=== PATIENT | male | born 1935 | race Caucasian/White ===

== ENCOUNTER 2017-04-05 11:01 | Emergency (ER) | payer MEDICARE, BC ==
[~2017-04-05] VITALS: Ht 195.6 cm; Wt 100.0 kg
[~2017-04-05 11:01] MED LIST: ALL220TA PO; CRES10TA PO; LEVEMIR SQ; METO25 PO; NOVOLOGP2 SQ; PLAV75TA PO; POLY255S PO; PRED5TAB PO; PROT40TA PO; ST J81CH PO; TAMS0.4C67 PO; [UNRECOGNIZED DRUG - CODE] INJ
[2017-04-05 11:03] VITALS: BP 134/60; PULSE 87; RESP 17; TEMP 97.5; O2SAT 99
--- NOTE | 2017-04-05 11:12 | PD ---
Physical Exam Time Seen by Provider: 11:07 Narrative 81yo M presents c/o bilateral hip pain for the past few days. Denies recent fall or injury. Reports chill, decreased appetite and fluid intake. Vital signs reviewed. Patient seen in triage. Awaiting bed placement. Data Data Last Documented VS Vital Signs Date Time Temp Pulse Resp B/P Pulse Ox O2 Delivery O2 Flow Rate FiO2 04/05/17 11:03 97.5 87 17 134/60 99 MDM Supervised Visit with ARMINDA: Jamilah Burch April 05, 2017 11:12
[2017-04-05] MEDS ORDERED: SODIUM CHLORIDE 0.9% FLUSH 10 ML FLUSH IVF PRN (11:30)
[2017-04-05] MEDS ORDERED: SODIUM CHLOR 0.9% 1000 ML INJ 1,000 ML IV ONE (11:30)
[2017-04-05] MEDS ORDERED: ONDANSETRON HCL 4 MG/2 ML VIAL IV PUSH ONE (11:30)
--- NOTE | 2017-04-05 11:51 | PD ---
HPI Chief Complaint: Pain: Acute or Chronic Time Seen by Provider: 11:35 Travel History International Travel<30 days: No Contact w/Intl Traveler<30days: No Traveled to known affect area: No History of Present Illness HPI Patient is an 81-year-old male presenting to the emergency department for evaluation of possible UTI, bilateral hip pain, decreased oral intake, lightheadedness, nausea, abdominal pain. Patient was discharged from [facility] 2 weeks ago diagnosed with a urinary tract infection, he also presented initially with chest pain and subsequently underwent a cardiac catheter with stent placement by Dr. Quiroga. Patient was receiving normal saline infusions at home until this past Wednesday. After that states that the symptoms started. She reports that he does not drink or eat enough, she reports that he has gastroparesis and this could be contributing to his symptoms. Patient reports dark urine, nausea. Patient is followed by Dr. 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 They report that they had a CT scan done recently that showed suspicious lesions on his pelvis. Patient has a history of diverticulitis with colon resection, he is currently complaining of left lower quadrant pain as well. He denies any fevers but has reported chills in night sweats. states that he does not do well with oral antibiotics secondary to nausea. Patient denies any chronic issues with hip pain, the pain that he is experiencing is new for him. PFSH Past Medical History Arthritis: Yes (back) Asthma: No Autoimmune Disease: No Blood Disorders: No Heart Rhythm Problems: No Cancer: Yes (PROSTATE [place] 2008 RADIATION [place] 2008, METS TO LUNG) Cardiac Catheterization: Yes (2016) Cardiovascular Problems: Yes (STENT CARDIAC 2007,2016, [place] 2007,2009, HX OF A FIB/CARDIOVERSION 2013) High Cholesterol: Yes Chemotherapy: No Chest Pain: No Congestive Heart Failure: No COPD: No Cerebrovascular Accident: No Coronary Artery Disease: Yes Diabetes: Yes (TYPE II on Levemir) Diminished Hearing: No Gastrointestinal Disorders: Yes (DIVERTICULITIS, gastroparesis) GERD: Yes Glaucoma: No Genitourinary: Yes (PROSTATE CA 2008 RADIATION [place]) Hepatitis: No Hiatal Hernia: No Hypertension: Yes Immune Disorder: No Inguinal Hernia: Yes Implanted Vascular Access Dvce: Yes Kidney Stones: Yes Neurologic: No Psychiatric: No Reproductive: No Respiratory: Yes (HX OF R LUNG CA NODULES/RADIATION pneumonitis) Migraines: No Myocardial Infarction: Yes Radiation Therapy: Yes (FINISHED RADIATION AND HORMONE THERAPY FOR PROSTATE CA) Renal Failure: No Seizures: No Sickle Cell Disease: No Sleep Apnea: No Thyroid Disease: No Ulcer: No PNEUMOCCOCAL Vaccine (Year): 2 Past Surgical History AICD: No Arteriovenous Shunt: No Body Medical Devices: CARDIAC STENT, DENTAL IMPLANTS, GOLD SEEDS FOR PROSTATE CA Cardiac Surgery: Yes (STENT, HX OF A FIB/CARDIOVERSION 2013) Coronary Artery Bypass Graft: No Coronary Stent: Yes Ear Surgery: No Endocrine Surgery: No Eye Surgery: No Genitourinary Surgery: No Insulin Pump: No Joint Replacement: No Neurologic Surgery: No Pacemaker: No Thoracic Surgery: Yes (NEEDLE BIOPSY OF R LUNG, RADIATION TREATMENT R LUNG) Tonsillectomy: Yes Social History Alcohol Use: No Tobacco Use: No Substance Use: No Allergies-Medications (Allergen,Severity, Reaction): Coded Allergies: Tetanus Toxoid (Verified Allergy, Severe, RESPIRATORY (TO OLD FORM OF TETNUS - NOT WHAT IS USED NOW, 10/04/14) Contrast Media (Verified Allergy, Intermediate, Nausea/Vomiting, 10/04/14) DIZZINESS, SWELLING Reported Meds & Prescriptions Reported Meds & Active Scripts Active Reported Mobic (Meloxicam) 15 Mg Tab 15 Mg PO DAILY Lisinopril 40 Mg Tab 40 Mg PO BID Colace (Docusate Sodium) 100 Mg Cap 100 Mg PO BID Xarelto (Rivaroxaban) 20 Mg Tab 20 Mg PO HS Lorazepam 0.5 Mg Tab 0.5 Mg PO BID PRN Linzess (Linaclotide) 290 Mcg Cap 290 Mcg PO DAILY Dulera 120 Act Inh (Mometasone-Formoterol 120 Act Inh) 100-5 Mcg/Act Inh 2 Puff INH BID PRN Flonase Nasal [place] (Fluticasone Nasal [place]) 50 Mcg/Act [place] 2 Spr EACH NARE BID PRN [place] (Hydrocodone-Acetaminophen) 5-325 mg Tab 1 Tab PO Q6H PRN Review of Systems Except as stated in HPI: all other systems reviewed are Neg General / Constitutional: Positive: Chills, Other (sweats) HENT: Positive: Lightheadedness Cardiovascular: No: Chest Pain or Discomfort Respiratory: Positive: Shortness of Breath (chronic with exertion secondary to pneumonitis) Gastrointestinal: Positive: Nausea, Abdominal Pain, Loss of Appetite, No: Vomiting, Diarrhea Genitourinary: Positive: Dysuria Musculoskeletal: Positive: Myalgias, Arthralgias Neurologic: Positive: Weakness, Dizziness, No: Syncope, Focal Abnormalities, Change in Mentation Physical Exam Narrative GENERAL: Well-developed, well-nourished, alert elderly male. Resting comfortably in no acute distress. SKIN: Focused skin assessment warm/dry. HEAD: Atraumatic. Normocephalic. EYES: Pupils equal and round. No scleral icterus. No injection or drainage. ENT: No nasal bleeding or discharge. Mucous membranes pink and moist. NECK: Trachea midline. No JVD. CARDIOVASCULAR: Regular rate and rhythm. No murmur appreciated. RESPIRATORY: No accessory muscle use. Diminished in bases, no wheezing, rhonchi , rales noted. GASTROINTESTINAL: Abdomen soft, tender to palpation left lower quadrant, nondistended. Hepatic and splenic margins not palpable. Positive bowel sounds, no rebound, no guarding MUSCULOSKELETAL: No obvious deformities. No clubbing. No cyanosis. No edema. NEUROLOGICAL: Awake and alert. No obvious cranial nerve deficits. Motor grossly within normal limits. Normal speech. PSYCHIATRIC: Appropriate mood and affect; insight and judgment normal. Data Data Last Documented VS Vital Signs Date Time Temp Pulse Resp B/P Pulse Ox O2 Delivery O2 Flow Rate FiO2 04/05/17 13:13 61 18 155/71 98 Room Air 04/05/17 11:03 97.5 Orders Complete Blood Count With Diff (04/05/17 11:30) Comprehensive Metabolic Panel (04/05/17 11:30) Act Partial Throm Time (Ptt) (04/05/17 11:30) Prothrombin Time / Inr (Pt) (04/05/17 11:30) Magnesium (Mg) (04/05/17 11:30) Urinalysis - C+S If Indicated (04/05/17 11:30) Iv Access Insert/Monitor (04/05/17 11:30) Electrocardiogram (04/05/17 11:30) Ecg Monitoring (04/05/17 11:30) Oximetry (04/05/17 11:30) Oxygen Administration (04/05/17 11:30) Chest, Single Ap (04/05/17 11:30) Cath For Specimen (04/05/17 11:30) Sodium Chloride 0.9% Flush (Ns Flush) (04/05/17 11:30) Ct Abd/Pel W/O Iv Contrast (04/05/17 ) Sodium Chlor 0.9% 1000 Ml Inj (Ns 1000 M (04/05/17 11:30) Ondansetron Inj (Zofran Inj) (04/05/17 11:30) Morphine Inj (Morphine Inj) (04/05/17 12:15) Orthostatic Vital Signs (04/05/17 13:27) Morphine Inj (Morphine Inj) (04/05/17 14:00) Mri Pelvis W&W/O Contrast (04/05/17 ) Lorazepam Inj (Ativan Inj) (04/05/17 15:00) Gadodiamide Pf Inj (Omniscan Pf Inj) (04/05/17 15:26) Labs Laboratory Tests Test 04/05/17 12:20 White Blood Count 5.1 TH/MM3 Red Blood Count 3.93 MIL/MM3 Hemoglobin 10.8 GM/DL Hematocrit 32.2 % Mean Corpuscular Volume 81.8 FL Mean Corpuscular Hemoglobin 27.6 PG Mean Corpuscular Hemoglobin 33.7 % Concent Red Cell Distribution Width 15.2 % Platelet Count 151 TH/MM3 Mean Platelet Volume 9.2 FL Neutrophils (%) (Auto) 73.2 % Lymphocytes (%) (Auto) 14.9 % Monocytes (%) (Auto) 9.8 % Eosinophils (%) (Auto) 1.3 % Basophils (%) (Auto) 0.8 % Neutrophils # (Auto) 3.8 TH/MM3 Lymphocytes # (Auto) 0.8 TH/MM3 Monocytes # (Auto) 0.5 TH/MM3 Eosinophils # (Auto) 0.1 TH/MM3 Basophils # (Auto) 0.0 TH/MM3 CBC Comment DIFF FINAL Differential Comment Prothrombin Time 12.4 SEC Prothromb Time International 1.1 RATIO Ratio Activated Partial 29.8 SEC Thromboplast Time Urine Color YELLOW Urine Turbidity CLEAR Urine pH 7.5 Urine Specific [place] 1.006 Urine Protein NEG mg/dL Urine Glucose (UA) NEG mg/dL Urine Ketones NEG mg/dL Urine Occult Blood MOD Urine Nitrite NEG Urine Bilirubin NEG Urine Urobilinogen LESS THAN 2.0 MG/DL Urine Leukocyte Esterase NEG Urine RBC 2 /hpf Urine WBC LESS THAN 1 /hpf Microscopic Urinalysis Comment CULT NOT INDICATED Sodium Level 137 MEQ/L Potassium Level 4.4 MEQ/L Chloride Level 103 MEQ/L Carbon Dioxide Level 26.0 MEQ/L Anion Gap 8 MEQ/L Blood Urea Nitrogen 11 MG/DL Creatinine 1.16 MG/DL Estimat Glomerular Filtration 61 ML/MIN Rate Random Glucose 146 MG/DL Calcium Level 9.1 MG/DL Magnesium Level 1.5 MG/DL Total Bilirubin 0.8 MG/DL Aspartate Amino Transf 27 U/L (AST/SGOT) Alanine Aminotransferase 16 U/L (ALT/SGPT) Alkaline Phosphatase 67 U/L Total Protein 6.8 GM/DL Albumin 2.7 GM/DL MDM Medical Decision Making Medical Screen Exam Complete: Yes Emergency Medical Condition: Yes Medical Record Reviewed: Yes Interpretation(s) Laboratory Tests Test 04/05/17 12:20 White Blood Count 5.1 TH/MM3 Red Blood Count 3.93 MIL/MM3 Hemoglobin 10.8 GM/DL Hematocrit 32.2 % Mean Corpuscular Volume 81.8 FL Mean Corpuscular Hemoglobin 27.6 PG Mean Corpuscular Hemoglobin 33.7 % Concent Red Cell Distribution Width 15.2 % Platelet Count 151 TH/MM3 Mean Platelet Volume 9.2 FL Neutrophils (%) (Auto) 73.2 % Lymphocytes (%) (Auto) 14.9 % Monocytes (%) (Auto) 9.8 % Eosinophils (%) (Auto) 1.3 % Basophils (%) (Auto) 0.8 % Neutrophils # (Auto) 3.8 TH/MM3 Lymphocytes # (Auto) 0.8 TH/MM3 Monocytes # (Auto) 0.5 TH/MM3 Eosinophils # (Auto) 0.1 TH/MM3 Basophils # (Auto) 0.0 TH/MM3 CBC Comment DIFF FINAL Differential Comment Prothrombin Time 12.4 SEC Prothromb Time International 1.1 RATIO Ratio Activated Partial 29.8 SEC Thromboplast Time Urine Color YELLOW Urine Turbidity CLEAR Urine pH 7.5 Urine Specific [place] 1.006 Urine Protein NEG mg/dL Urine Glucose (UA) NEG mg/dL Urine Ketones NEG mg/dL Urine Occult Blood MOD Urine Nitrite NEG Urine Bilirubin NEG Urine Urobilinogen LESS THAN 2.0 MG/DL Urine Leukocyte Esterase NEG Urine RBC 2 /hpf Urine WBC LESS THAN 1 /hpf Microscopic Urinalysis Comment CULT NOT INDICATED Sodium Level 137 MEQ/L Potassium Level 4.4 MEQ/L Chloride Level 103 MEQ/L Carbon Dioxide Level 26.0 MEQ/L Anion Gap 8 MEQ/L Blood Urea Nitrogen 11 MG/DL Creatinine 1.16 MG/DL Estimat Glomerular Filtration 61 ML/MIN Rate Random Glucose 146 MG/DL Calcium Level 9.1 MG/DL Magnesium Level 1.5 MG/DL Total Bilirubin 0.8 MG/DL Aspartate Amino Transf 27 U/L (AST/SGOT) Alanine Aminotransferase 16 U/L (ALT/SGPT) Alkaline Phosphatase 67 U/L Total Protein 6.8 GM/DL Albumin 2.7 GM/DL Vital Signs Date Time Temp Pulse Resp B/P Pulse Ox O2 Delivery O2 Flow Rate FiO2 04/05/17 11:03 97.5 87 17 134/60 99 Differential Diagnosis Electrolyte abnormality secondary to dehydration versus urinary tract infection versus failure to thrive versus metastatic disease to the bone versus other Narrative Course Patient is an 81-year-old male brought in by 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 Labs and imaging ordered and pending, IV access established, patient placed on telemetry monitoring and continuous pulse oximetry. Patient has a copy of his recent PET scan performed on 03/30/2017 that shows hypermetabolism in the right posterior iliac wing suspicious for metastatic disease. There is also focal hyper metabolism and the pubic body with new bony erosion, hypermetabolism within masslike opacity in the right infrapatellar region and scattered bandlike opacity in the right lung, most likely reflective post radiation related change, there is mild hypermetabolism within a small patchy opacity in the right posterior medial right lower lobe agree focal area of atelectasis or inflammation. Correlation with prior outside imaging would be beneficial. Labs and imaging ordered and pending, IV access established, patient placed on telemetry monitoring and continuous pulse oximetry. Chest x-ray shows interval improvement with minimal parenchymal changes persisting in the right base. CT abdomen and pelvis is negative for acute abnormality, there is no evidence of metastatic disease per radiologist. There are degenerative changes noted in the lumbar spine and bilateral hips. CBC with a mild anemia of 10.8 and 32.2 otherwise unremarkable. Chemistries unremarkable, albumin is 2.7, patient was encouraged to increase protein intake. UA is not indicative of a urinary tract infection. Patient reports improvement how he feels after administration of morphine. Patient are reassured at this time that there were no acute findings. Patient is to follow-up with oncologist, and primary doctor. He is to return to emergency department for new or worsening symptoms. He was encouraged to increase fluid intake to help with constipation. He was encouraged to again increase intake of protein. Patient verbalized understanding of discharge instructions. Patient was also seen and evaluated by my attending physician. Patient will be given additional dose of morphine prior to discharge. He was advised that narcotic pain medications can exacerbate constipation. Stable for discharge. Just prior to discharge, patient's oncologist Dr. Herndon was notified by patient' s that he was being discharged, Dr. Henrdon then spoke to me. We discussed the results of CT scan, Dr. Herndon then called and talked to Dr. Bhargav Garcias the radiologist. The outcome of their discussion was to perform a pelvic MRI with and without contrast. The determination of the patient's disposition will depend on the results of MRI. Patient may end up receiving a CT-guided biopsy of the pubic ramus as that was initial abnormality on the PET scan. MRI of the pelvis shows one focus of apparent metastatic disease in the right ilium just above the right acetabulum. Marked abnormality about the pubic symphysis involving soft tissue with enhancement. Per the radiologist report inflammatory process could get a similar appearance will be unusual and is suspicious for metastatic disease. I spoke with Dr. Herndon, he requested patient follow-up in the office. Dr. Herndon states that he spoke with Dr. Garcias the radiologist and at this time they don't feel that this is requiring admission. Dr. Herndon states that he spoke with patient's and they are aware of the treatment plan and to follow-up in the office. Diagnosis Primary Impression: Arthritis Additional Impressions: Decreased appetite Decreased oral intake Referrals: Martin Robertson MD, Richard MD Patient Instructions: Arthritis (GEN), Constipation (ED), General Instructions Additional Instructions: Follow-up with Dr. Robertson and Dr. Herndon as scheduled Increase fluid intake, increase intake of protein Return to emergency department for any new or worsening symptoms Med/Other Pt SpecificInfo: No Change to Meds Disposition: 01 DISCHARGE HOME Condition: Stable Ashley Michael Reva PABLO April 05, 2017 11:51
--- NOTE | 2017-04-05 11:58 | RADRPT ---
EXAM DATE/TIME: 04/05/2017 11:31 [facility] COMPARISON: CHEST SINGLE AP, October 04, 2014, 13:23. INDICATIONS : Short of breath, vertigo, pain in left abdomen and hips, no chest pain at this time MEDICAL HISTORY : Cardiovascular disease. SURGICAL HISTORY : Coronary artery stent. ENCOUNTER: Initial ACUITY: 1 day PAIN SCORE: 0/10 LOCATION: Bilateral chest FINDINGS: Compared to 10/04/2014 minimal bibasilar parenchymal changes are noted worse on the right than the lef t. Heart is minimally enlarged. Pulmonary vascularity is normal. Portion of bony skeleton visualize d unremarkable. CONCLUSION: Interval improvement with minimal parenchymal changes persisting in the right base. Board Certified Radiologist. This report was verified electronically.
[2017-04-05] MEDS ORDERED: MORPHINE SULFATE 4 MG/ML INJ IV PUSH ONE ×2 (12:15→14:00)
[2017-04-05 12:45] LABS: AUTOMATED NEUTROPHIL # 3.8 TH/MM3 (1.8-7.7); BASOPHIL % 0.8 % (0.0-2.0); EOSINOPHIL # 0.1 TH/MM3 (0-0.4); EOSINOPHIL % 1.3 % (0.0-4.0); HEMATOCRIT 32.2 % (39.0-51.0); HEMO FLAGS DIFF FINAL; LYMPH % 14.9 % (9.0-44.0); LYMPHOCYTE # 0.8 TH/MM3 (1.0-4.8); MEAN CELL VOLUME 81.8 FL (80.0-100.0); MEAN CORPUSCULAR HEMOGLOBIN 27.6 PG (27.0-34.0); MEAN CORPUSCULAR HGB CONC 33.7 % (32.0-36.0); MONO % 9.8 % (0.0-8.0); NEUT % 73.2 % (16.0-70.0); PLATELET COUNT 151 TH/MM3 (150-450); RED BLOOD COUNT 3.93 MIL/MM3 (4.50-5.90); RED CELL DISTRIBUTION WIDTH 15.2 % (11.6-17.2); WHITE BLOOD COUNT 5.1 TH/MM3 (4.0-11.0)
[2017-04-05 12:50] LABS: BLOOD, URINE MOD (NEG); COMMENT (UR) CULT NOT INDICATED; CULTURE IF INDICATED CULT NOT INDICATED; GLUCOSE,URINE NEG (NEG); KETONE, URINE NEG (NEG); NITRITE,URINE NEG (NEG); PH, URINE 7.5 (5.0-8.5); URINE COLOR YELLOW (YELLW/STRAW)
[2017-04-05 12:55] LABS: PROTHROMBIN TIME - PATIENT 12.4 SEC (9.8-11.6)
[2017-04-05 12:58] LABS: ALKALINE PHOSPHATASE 67 U/L (45-117); TOTAL BILIRUBIN ADULT 0.8 MG/DL (0.2-1.0)
[2017-04-05 13:01] LABS: APTT (PATIENT) 29.8 SEC (24.3-30.1); INTERNATIONAL NORMALIZED RATIO 1.1 RATIO
[2017-04-05 13:02] LABS: ALT (GPT) 16 U/L (12-78); ANION GAP 8 MEQ/L (5-15); AST (GOT) 27 U/L (15-37); BLOOD UREA NITROGEN 11 MG/DL (7-18); CHLORIDE 103 MEQ/L (98-107); GLOMERULAR FILTRATION RATE 61 ML/MIN (>89); MAGNESIUM 1.5 MG/DL (1.5-2.5); SODIUM (NA) 137 MEQ/L (136-145)
[2017-04-05 13:04] LABS: POTASSIUM 4.4 MEQ/L (3.5-5.1)
[2017-04-05 13:13] VITALS: BP 155/71; PULSE 61; RESP 18; O2SAT 98
--- NOTE | 2017-04-05 13:22 | RADRPT ---
EXAM DATE/TIME: 04/05/2017 12:43 [facility] COMPARISON: CT ABDOMEN & PELVIS W/O CONTRAST, February 24, 2014, 1:11. INDICATIONS : Left lower abdomen and bilateral hip pain for two weeks. ORAL CONTRAST: No oral contrast ingested. RADIATION DOSE: 11.43 CTDIvol (mGy) MEDICAL HISTORY : Carcinoma, prostate. Hypertension. Diabetes SURGICAL HISTORY : Stent placement ENCOUNTER: Initial ACUITY: 2 weeks PAIN SCALE: 7/10 LOCATION: Left lower quadrant TECHNIQUE: Volumetric scanning of the abdomen and pelvis was performed. Using automated exposure control and ad justment of the mA and/or kV according to patient size, radiation dose was kept as low as reasonably achievable to obtain optimal diagnostic quality images. FINDINGS: Minimal airspace disease persists in the right base. The liver is free of focal defects. Gallstones are evident. Spleen contains granulomas. Pancreas and adrenal glands are unremarkable. Right and left kidneys are unremarkable. Moderate vascular calcifications are noted. Scattered diverticula are present in the sigmoid colon. Surgical clips are seen in the pelvis. There is no ascites or adenopathy appreciated. Review of bone windows reveals extensive degenerative changes in the lumbar spine. There are erosive changes at the pubic symphysis. I do not see evidence for metastatic disease in this individual with a history of prostate cancer. Degenerative changes are seen about both hips. CONCLUSION: Negative CT scan of the abdomen and pelvis for acute disease. I do not see evidence for metastatic d isease. There are degenerative changes present in the lumbar spine, pubic symphysis and both hips. Bhargav Garcias MD FACR on April 05, 2017 at 13:14 Board Certified Radiologist. This report was verified electronically.
[2017-04-05] MEDS ORDERED: LORazepam 2 MG/ML VIAL IV PUSH ONE (15:00)
[2017-04-05] MEDS ORDERED: GADODIAMIDE PF 287 MG/ML 5 ML VIAL (for RAD MRI) IV ONE (15:26)
--- NOTE | 2017-04-05 15:45 | PD ---
Physical Exam Narrative I, Dr. eBnjamin, have reviewed the advance practice practitioner's documentation and am in agreement, met with the patient face to face, made the diagnosis, and the medical decision making was done by me. *My assessment and Findings: Failure to thrive vs. UTI vs. dehydration 81yo M with metastatic prostate cancer who follows with Dr. Herndon here with decreased appetite and decreased PO intake. Pt also with abdominal pain. Labs reviewed, no leukocytosis. H/H at baseline. CMP unremarkable. UA showed moderate blood. No leukocyte or nitrite. CXR showed interval improvement with minimal parenchymal changes persistent in right base. CTa/p negative for acute disease. Pt evaluated at bedside and states morphine helped with abdominal pain. Still with mild periumbilical pain. Ordered 2 more mg of morphine IV. My PA discussed with Dr. Herndon and he was concern about metastatic disease in pelvis and wanted MRI done. Pt is claustrophobic and ativan was given for MRI. MRI showed metastatic disease in right ilium. This was communicated with Dr. Herndon and now he wants outpatient follow up. Return precautions given. Data Data Last Documented VS Vital Signs Date Time Temp Pulse Resp B/P Pulse Ox O2 Delivery O2 Flow Rate FiO2 04/05/17 17:37 64 16 145/74 98 Room Air 04/05/17 11:03 97.5 Orders Complete Blood Count With Diff (04/05/17 11:30) Comprehensive Metabolic Panel (04/05/17 11:30) Act Partial Throm Time (Ptt) (04/05/17 11:30) Prothrombin Time / Inr (Pt) (04/05/17 11:30) Magnesium (Mg) (04/05/17 11:30) Urinalysis - C+S If Indicated (04/05/17 11:30) Iv Access Insert/Monitor (04/05/17 11:30) Electrocardiogram (04/05/17 11:30) Ecg Monitoring (04/05/17 11:30) Oximetry (04/05/17 11:30) Oxygen Administration (04/05/17 11:30) Chest, Single Ap (04/05/17 11:30) Cath For Specimen (04/05/17 11:30) Sodium Chloride 0.9% Flush (Ns Flush) (04/05/17 11:30) Ct Abd/Pel W/O Iv Contrast (04/05/17 ) Sodium Chlor 0.9% 1000 Ml Inj (Ns 1000 M (04/05/17 11:30) Ondansetron Inj (Zofran Inj) (04/05/17 11:30) Morphine Inj (Morphine Inj) (04/05/17 12:15) Orthostatic Vital Signs (04/05/17 13:27) Morphine Inj (Morphine Inj) (04/05/17 14:00) Mri Pelvis W&W/O Contrast (04/05/17 ) Lorazepam Inj (Ativan Inj) (04/05/17 15:00) Gadodiamide Pf Inj (Omniscan Pf Inj) (04/05/17 15:26) Labs Laboratory Tests Test 04/05/17 12:20 White Blood Count 5.1 TH/MM3 Red Blood Count 3.93 MIL/MM3 Hemoglobin 10.8 GM/DL Hematocrit 32.2 % Mean Corpuscular Volume 81.8 FL Mean Corpuscular Hemoglobin 27.6 PG Mean Corpuscular Hemoglobin 33.7 % Concent Red Cell Distribution Width 15.2 % Platelet Count 151 TH/MM3 Mean Platelet Volume 9.2 FL Neutrophils (%) (Auto) 73.2 % Lymphocytes (%) (Auto) 14.9 % Monocytes (%) (Auto) 9.8 % Eosinophils (%) (Auto) 1.3 % Basophils (%) (Auto) 0.8 % Neutrophils # (Auto) 3.8 TH/MM3 Lymphocytes # (Auto) 0.8 TH/MM3 Monocytes # (Auto) 0.5 TH/MM3 Eosinophils # (Auto) 0.1 TH/MM3 Basophils # (Auto) 0.0 TH/MM3 CBC Comment DIFF FINAL Differential Comment Prothrombin Time 12.4 SEC Prothromb Time International 1.1 RATIO Ratio Activated Partial 29.8 SEC Thromboplast Time Urine Color YELLOW Urine Turbidity CLEAR Urine pH 7.5 Urine Specific [place] 1.006 Urine Protein NEG mg/dL Urine Glucose (UA) NEG mg/dL Urine Ketones NEG mg/dL Urine Occult Blood MOD Urine Nitrite NEG Urine Bilirubin NEG Urine Urobilinogen LESS THAN 2.0 MG/DL Urine Leukocyte Esterase NEG Urine RBC 2 /hpf Urine WBC LESS THAN 1 /hpf Microscopic Urinalysis Comment CULT NOT INDICATED Sodium Level 137 MEQ/L Potassium Level 4.4 MEQ/L Chloride Level 103 MEQ/L Carbon Dioxide Level 26.0 MEQ/L Anion Gap 8 MEQ/L Blood Urea Nitrogen 11 MG/DL Creatinine 1.16 MG/DL Estimat Glomerular Filtration 61 ML/MIN Rate Random Glucose 146 MG/DL Calcium Level 9.1 MG/DL Magnesium Level 1.5 MG/DL Total Bilirubin 0.8 MG/DL Aspartate Amino Transf 27 U/L (AST/SGOT) Alanine Aminotransferase 16 U/L (ALT/SGPT) Alkaline Phosphatase 67 U/L Total Protein 6.8 GM/DL Albumin 2.7 GM/DL [facility] Supervised Visit with ARMINDA: Yes Interpretation(s) EKG: Sinus bradycardia at 51bpm. Likely lead placement error since I and aVL are both down with inverted p waves. Diagnosis Primary Impression: Arthritis Additional Impressions: Decreased oral intake Decreased appetite Referrals: Martin Robertson MD, Richard MD Patient Instructions: General Instructions, Constipation (ED), Arthritis (GEN) Additional Instruction: Follow-up with Dr. Robertson and Dr. Herndon as scheduled Increase fluid intake, increase intake of protein Return to emergency department for any new or worsening symptoms Nuris Benjamin DO April 05, 2017 15:45
--- NOTE | 2017-04-05 16:15 | RADRPT ---
EXAM DATE/TIME: 04/05/2017 15:03 [facility] COMPARISON: CT ABDOMEN & PELVIS W/O CONTRAST, April 05, 2017, 12:43. INDICATIONS : Abnormal CT scan. Neoplasm. CONTRAST: 20 cc Omniscan (gadodiamide) IV MEDICAL HISTORY : Carcinoma, lung. Carcinoma, prostate. Hypertension. Diabetes. SURGICAL HISTORY : Umbilical hernia repair. Inguinal hernia repair. Colon resection. Melanoma fro m head, Tonsillectomy. ENCOUNTER: Initial ACUITY: 1 week PAIN SCORE: 3/10 LOCATION: Bilateral lower quadrant TECHNIQUE: Multiplanar, multisequence magnetic resonance imaging of the pelvis was performed. FINDINGS: There is subtle marrow replacement in the right ilium just above the acetabulum. There is edema in the marrow involving the pubic symphysis with soft tissue enhancement and induration. T his is an unusual location and appearance for metastatic disease. Inflammatory process could give a similar appearance but would be unusual. Post radiation therapy changes with insufficiency fractures could give a very similar appearance. Right and left hips are unremarkable. The bladder is decompressed with bladder wall thickening. CONCLUSION: 1. One focus of apparent metastatic disease in the right ilium just above the right acetabulum. 2. Marked abnormality about the pubic symphysis including soft tissue with enhancement. Please see a trino discussion. Bhargav Garcias MD FACR on April 05, 2017 at 15:58 Board Certified Radiologist. This report was verified electronically.
[2017-04-05] MEDS ORDERED: COLA100C3 PO (16:39)
[2017-04-05] MEDS ORDERED: LORA-373 PO (16:39)
[2017-04-05] MEDS ORDERED: XARE20TA PO (16:39)
[2017-04-05] MEDS ORDERED: LINA290C PO (16:39)
[2017-04-05] MEDS ORDERED: LISI40TA PO (16:39)
[2017-04-05] MEDS ORDERED: DULE100A INH (16:39)
[2017-04-05] MEDS ORDERED: FLUT1SPR5 EACH NARE (16:39)
[2017-04-05] MEDS ORDERED: MOBI15TA PO (16:39)
[2017-04-05] MEDS ORDERED: NORC5TAB PO (16:39)
[2017-04-05] MEDS ORDERED: ROSU40 PO (16:43)
[2017-04-05] MEDS ORDERED: METO25TA3 PO (16:43)
[2017-04-05] MEDS ORDERED: TAMS0.4C4 PO (16:43)
[2017-04-05] MEDS ORDERED: LUPR22.5 IM (16:43)
[2017-04-05] MEDS ORDERED: PANT40TA3 PO (16:43)
[2017-04-05] MEDS ORDERED: LEVEMIR SQ (16:43)
[2017-04-05] MEDS ORDERED: NOVOLOGP2 SQ (16:43)
[2017-04-05 17:37] VITALS: BP 145/74; PULSE 64; RESP 16; O2SAT 98
--- NOTE | 2017-04-06 15:37 | EKG ---
Date Performed: 04/05/2017 Time Performed: 13:06:41 PTAGE: 81 years EKG: SINUS BRADYCARDIA WITH OCCASIONAL ECTOPIC PREMATURE COMPLEXES POSSIBLE RIGHT VENTRICULAR HY PERTROPHY LATERAL MYOCARDIAL INFARCTION Compared to prior tracing no significant change ABNORMAL ECG NO PREVIOUS TRACING DOCTOR: Alexandra Ac Interpretating Date/Time 04/06/2017 15:35:07
[2017-05-26] MEDS ORDERED: PLEC3TAB PO (14:09)
== END 2017-04-05 17:53 | disposition home or self-care (01) ==
LOC: NEPC 11:01
DX: M19.90 Unspecified osteoarthritis, unspecified site (principal); M25.552 Pain in left hip; M25.551 Pain in right hip; C61 Malignant neoplasm of prostate; C78.00 Secondary malignant neoplasm of unspecified lung; E78.00 Pure hypercholesterolemia, unspecified; I25.10 Atherosclerotic heart disease of native coronary artery without angina pectoris; E11.9 Type 2 diabetes mellitus without complications; I10 Essential (primary) hypertension; I25.2 Old myocardial infarction; D64.9 Anemia, unspecified; R63.0 Anorexia; Z87.442 Personal history of urinary calculi
CPT/HCPCS: 71010; 72197; 74176; 80053; 81001; 83735; 85025; 85610; 85730; 93005; 96374; 96375; 99284; A9579; J2060; J2270; J2405; J7030

== ENCOUNTER 2017-05-14 15:59 | Inpatient (IN) | payer MEDICARE, BC ==
[~2017-05-14] VITALS: Ht 198.1 cm; Wt 95.5 kg
[~2017-05-14 15:59] MED LIST changes: -ALL220TA PO; +COLA100C3 PO; -CRES10TA PO; +DULE100A INH; +FLUT1SPR5 EACH NARE; +LINA290C PO; +LISI40TA PO; +LORA-373 PO; +LUPR22.5 IM; -METO25 PO; +METO25TA3 PO; +MOBI15TA PO; +NORC5TAB PO; +PANT40TA3 PO; -PLAV75TA PO; -POLY255S PO; -PRED5TAB PO; -PROT40TA PO; +ROSU40 PO; -ST J81CH PO; +TAMS0.4C4 PO; -TAMS0.4C67 PO; +XARE20TA PO; -[UNRECOGNIZED DRUG - CODE] INJ
[2017-05-14 16:02] VITALS: BP 151/75; PULSE 65; RESP 18; TEMP 98.2; O2SAT 98
--- NOTE | 2017-05-14 16:20 | PD ---
HPI Chief Complaint: Headache Time Seen by Provider: 16:20 Travel History International Travel<30 days: No Contact w/Intl Traveler<30days: No Traveled to known affect area: No History of Present Illness HPI 81-year-old male presents to the emergency department for evaluation at the instruction of his oncologist Dr. Herndon. 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 He underwent treatment for this in 2007. Patient recently had 2 spots of melanoma removed from his head. Patient also has history of CAD, hypertension, A. fib, on Xarelto and diabetes. Patient reports being hospitalized in January of this year after being septic from a UTI. This hospitalization was at [facility]. Patient states since the hospitalization he has not quite been right. He has been increasingly fatigued and unable to walk even short distance without extreme weakness. Patient had a trip and fall 2 days ago he did strike his head. He did not seek evaluation following this. He has developed a severe left-sided headache, sharp , stabbing, 10 out of 10. He states it is unbearable today. Denies any nausea or vomiting. No focal deficits or weakness. No chest pain or tightness. Dr. Herndon called and gave report to Dr. Coelho who reports that Dr. Herndon would like the patient admitted for further evaluation. The patient has severe claustrophobia and is in need of an MRI with and without contrast. He needs Benadryl pretreatment prior to CT with IV contrast. 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 Dr. Herndon does request to be consulted on the case. PFSH Past Medical History Hx Anticoagulant Therapy: Yes (XARELTO ) Arthritis: Yes (back) Asthma: No Autoimmune Disease: No Blood Disorders: No Heart Rhythm Problems: No Cancer: Yes (PROSTATE CA 2008 RADIATION [place] 2009, METS TO LUNG) Cardiac Catheterization: Yes (2017) Cardiovascular Problems: Yes (HTN ) High Cholesterol: Yes Chemotherapy: No Chest Pain: No Congestive Heart Failure: No COPD: No Cerebrovascular Accident: No Coronary Artery Disease: Yes Diabetes: Yes (TYPE II on Levemir) Diminished Hearing: No Gastrointestinal Disorders: Yes (DIVERTICULITIS, gastroparesis) GERD: Yes Glaucoma: No Genitourinary: Yes (PROSTATE CA 2008 RADIATION [place]) Hepatitis: No Hiatal Hernia: No Hypertension: Yes Immune Disorder: No Inguinal Hernia: Yes Implanted Vascular Access Dvce: Yes Kidney Stones: Yes Neurologic: No Psychiatric: No Reproductive: No Respiratory: Yes (HX OF R LUNG CA NODULES/RADIATION pneumonitis) Migraines: No Myocardial Infarction: Yes Radiation Therapy: Yes (FINISHED RADIATION AND HORMONE THERAPY FOR PROSTATE CA) Renal Failure: No Seizures: No Sickle Cell Disease: No Sleep Apnea: No Thyroid Disease: No Ulcer: No PNEUMOCCOCAL Vaccine (Year): 2 Past Surgical History AICD: No Arteriovenous Shunt: No Body Medical Devices: CARDIAC STENT, DENTAL IMPLANTS, GOLD SEEDS FOR PROSTATE CA Cardiac Surgery: Yes (STENT, HX OF A FIB/CARDIOVERSION 2013) Coronary Artery Bypass Graft: No Coronary Stent: Yes Ear Surgery: No Endocrine Surgery: No Eye Surgery: No Genitourinary Surgery: No Insulin Pump: No Joint Replacement: No Neurologic Surgery: No Pacemaker: No Thoracic Surgery: Yes (NEEDLE BIOPSY OF R LUNG, RADIATION TREATMENT R LUNG) Tonsillectomy: Yes Social History Alcohol Use: No Tobacco Use: No Substance Use: No Allergies-Medications (Allergen,Severity, Reaction): Coded Allergies: Tetanus Toxoid (Verified Allergy, Severe, RESPIRATORY (TO OLD FORM OF TETNUS - NOT WHAT IS USED NOW, 05/14/17) Contrast Media (Verified Allergy, Intermediate, Nausea/Vomiting, 05/14/17) DIZZINESS, SWELLING Reported Meds & Prescriptions Reported Meds & Active Scripts Active Reported Movantik (Naloxegol) 25 Mg Tab 25 Mg PO DAILY Ambien (Zolpidem Tartrate) 10 Mg Tab 10 Mg PO HS PRN Singulair (Montelukast Sodium) 10 Mg Tab 10 Mg PO HS Colace (Docusate Sodium) 100 Mg Capsule 100 Mg PO BID Hydrocodone-Acetaminophen 10-325 mg Tab 1-2 Tab PO Q6H PRN Crestor (Rosuvastatin Calcium) 40 Mg Tab 40 Mg PO HS Novolog Inj (Insulin Aspart) 1,000 Unit/10 Ml Vial 0 SQ BID Sliding Scale as directed. Levemir Inj (Insulin Detemir) 1,000 unit/ 10 ML Vial 10 Units SQ HS Do not mix with any other Insulin. Lupron Depot Inj Kit (Leuprolide (3 Month) Inj Kit) 22.5 Mg Kit 22.5 Mg IM Q84D Metoprolol Tartrate 25 Mg Tab 25 Mg PO BID Pantoprazole (Pantoprazole Sodium) 40 Mg Tab 40 Mg PO DAILY Tamsulosin (Tamsulosin HCl) 0.4 Mg Cap 0.4 Mg PO HS Lisinopril 40 Mg Tab 40 Mg PO BID Xarelto (Rivaroxaban) 20 Mg Tab 20 Mg PO HS Lorazepam 0.5 Mg Tab 0.5 Mg PO BID PRN Linzess (Linaclotide) 290 Mcg Cap 290 Mcg PO DAILY PRN Dulera 120 Act Inh (Mometasone-Formoterol 120 Act Inh) 100-5 Mcg/Act Inh 2 Puff INH BID PRN Flonase Nasal [place] (Fluticasone Nasal [place]) 50 Mcg/Act [place] 2 Spr EACH NARE BID PRN Review of Systems Except as stated in HPI: all other systems reviewed are Neg Physical Exam Narrative GENERAL: Well-nourished elderly male patient, in no acute distress SKIN: Focused skin assessment warm/dry. Abrasion to the left mid upper extremity. There is contusion to the left parietal scalp. HEAD: Atraumatic. Normocephalic. EYES: Pupils pinpoint right pupil. Left pupil is slightly larger with very slight reaction. EOMI. No scleral icterus. No injection or drainage. ENT: No nasal bleeding or discharge. Mucous membranes pink and moist. NECK: Trachea midline. No JVD. CARDIOVASCULAR: Bradycardic rate and rhythm. No murmur appreciated. RESPIRATORY: No accessory muscle use. Diminished, coarse, with a faint expiratory wheeze to auscultation. Breath sounds equal bilaterally. GASTROINTESTINAL: Abdomen soft, non-tender, nondistended. Hepatic and splenic margins not palpable. MUSCULOSKELETAL: No obvious deformities. No clubbing. No cyanosis. No edema. NEUROLOGICAL: Awake and alert. No obvious cranial nerve deficits. Motor grossly within normal limits. Normal speech. PSYCHIATRIC: Appropriate mood and affect; insight and judgment normal. Data Data Last Documented VS Vital Signs Date Time Temp Pulse Resp B/P Pulse Ox O2 Delivery O2 Flow Rate FiO2 05/14/17 16:46 100 Room Air 05/14/17 16:38 57 16 05/14/17 16:02 98.2 151/75 Orders Electrocardiogram (05/14/17 16:18) Complete Blood Count With Diff (05/14/17 16:18) Comprehensive Metabolic Panel (05/14/17 16:18) Prothrombin Time / Inr (Pt) (05/14/17 16:18) Act Partial Throm Time (Ptt) (05/14/17 16:18) Ckmb (Isoenzyme) Profile (05/14/17 16:18) Urinalysis - C+S If Indicated (05/14/17 16:18) Chest, Single Ap (05/14/17 16:18) Blood Glucose (05/14/17 16:18) Ecg Monitoring (05/14/17 16:18) Iv Access Insert/Monitor (05/14/17 16:18) Oximetry (05/14/17 16:18) Oxygen Administration (05/14/17 16:18) Ct Brain W/O Iv Contrast(Rout) (05/14/17 16:18) C-Reactive Protein (Crp) (05/14/17 16:18) Westergren Sedimentation Rate (05/14/17 16:18) Ondansetron Inj (Zofran Inj) (05/14/17 16:30) Morphine Inj (Morphine Inj) (05/14/17 16:30) Morphine Inj (Morphine Inj) (05/14/17 18:30) Admit Order (Ed Use Only) (05/14/17 19:13) Consult Hematology (05/14/17 ) Labs Laboratory Tests Test 05/14/17 05/14/17 16:45 17:35 White Blood Count 7.3 TH/MM3 Red Blood Count 4.36 MIL/MM3 Hemoglobin 11.8 GM/DL Hematocrit 36.2 % Mean Corpuscular Volume 83.1 FL Mean Corpuscular Hemoglobin 27.1 PG Mean Corpuscular Hemoglobin 32.6 % Concent Red Cell Distribution Width 16.8 % Platelet Count 144 TH/MM3 Mean Platelet Volume 9.6 FL Neutrophils (%) (Auto) 51.1 % Lymphocytes (%) (Auto) 32.5 % Monocytes (%) (Auto) 9.7 % Eosinophils (%) (Auto) 6.3 % Basophils (%) (Auto) 0.4 % Neutrophils # (Auto) 3.7 TH/MM3 Lymphocytes # (Auto) 2.4 TH/MM3 Monocytes # (Auto) 0.7 TH/MM3 Eosinophils # (Auto) 0.5 TH/MM3 Basophils # (Auto) 0.0 TH/MM3 CBC Comment DIFF FINAL Differential Comment Erythrocyte Sedimentation Rate 54 mm/hr Prothrombin Time 11.0 SEC Prothromb Time International 1.0 RATIO Ratio Activated Partial 28.7 SEC Thromboplast Time Sodium Level 138 MEQ/L Potassium Level 3.6 MEQ/L Chloride Level 104 MEQ/L Carbon Dioxide Level 27.0 MEQ/L Anion Gap 7 MEQ/L Blood Urea Nitrogen 15 MG/DL Creatinine 1.12 MG/DL Estimat Glomerular Filtration 63 ML/MIN Rate Random Glucose 141 MG/DL Calcium Level 9.3 MG/DL Total Bilirubin 0.4 MG/DL Aspartate Amino Transf 17 U/L (AST/SGOT) Alanine Aminotransferase 20 U/L (ALT/SGPT) Alkaline Phosphatase 68 U/L Total Creatine Kinase 21 U/L C-Reactive Protein 1.18 MG/DL Total Protein 7.1 GM/DL Albumin 3.1 GM/DL Urine Color LIGHT-YELLOW Urine Turbidity CLEAR Urine pH 8.0 Urine Specific [place] 1.006 Urine Protein NEG mg/dL Urine Glucose (UA) NEG mg/dL Urine Ketones NEG mg/dL Urine Occult Blood NEG Urine Nitrite NEG Urine Bilirubin NEG Urine Urobilinogen LESS THAN 2.0 MG/DL Urine Leukocyte Esterase NEG Urine WBC LESS THAN 1 /hpf Urine Squamous Epithelial <1 /hpf Cells Microscopic Urinalysis Comment CATH-CULT NOT IND MDM Medical Decision Making Medical Screen Exam Complete: Yes Emergency Medical Condition: Yes Medical Record Reviewed: Yes Differential Diagnosis Intracranial hemorrhage versus migraine headache versus metastatic disease versus electrolyte abnormality Narrative Course 81-year-old male presents to the emergency department for evaluation. Patient appears without distress. He reports severe 10 out of 10 left-sided headache. There are no focal deficits or weakness. Vital signs are stable. Patient does report a fall [address] imaging of the brain is without acute abnormality. Patient is treated with morphine for headache with moderate improvement in his pain. He is given additional pain control this.. Patient states he is severely claustrophobic and cannot do an MRI without complete sedation. Dr. Herndon called and gave report to Dr. Coelho and requested consult to his service. Laboratory Tests Test 05/14/17 05/14/17 16:45 17:35 White Blood Count 7.3 TH/MM3 Red Blood Count 4.36 MIL/MM3 Hemoglobin 11.8 GM/DL Hematocrit 36.2 % Mean Corpuscular Volume 83.1 FL Mean Corpuscular Hemoglobin 27.1 PG Mean Corpuscular Hemoglobin 32.6 % Concent Red Cell Distribution Width 16.8 % Platelet Count 144 TH/MM3 Mean Platelet Volume 9.6 FL Neutrophils (%) (Auto) 51.1 % Lymphocytes (%) (Auto) 32.5 % Monocytes (%) (Auto) 9.7 % Eosinophils (%) (Auto) 6.3 % Basophils (%) (Auto) 0.4 % Neutrophils # (Auto) 3.7 TH/MM3 Lymphocytes # (Auto) 2.4 TH/MM3 Monocytes # (Auto) 0.7 TH/MM3 Eosinophils # (Auto) 0.5 TH/MM3 Basophils # (Auto) 0.0 TH/MM3 CBC Comment DIFF FINAL Differential Comment Erythrocyte Sedimentation Rate 54 mm/hr Prothrombin Time 11.0 SEC Prothromb Time International 1.0 RATIO Ratio Activated Partial 28.7 SEC Thromboplast Time Sodium Level 138 MEQ/L Potassium Level 3.6 MEQ/L Chloride Level 104 MEQ/L Carbon Dioxide Level 27.0 MEQ/L Anion Gap 7 MEQ/L Blood Urea Nitrogen 15 MG/DL Creatinine 1.12 MG/DL Estimat Glomerular Filtration 63 ML/MIN Rate Random Glucose 141 MG/DL Calcium Level 9.3 MG/DL Total Bilirubin 0.4 MG/DL Aspartate Amino Transf 17 U/L (AST/SGOT) Alanine Aminotransferase 20 U/L (ALT/SGPT) Alkaline Phosphatase 68 U/L Total Creatine Kinase 21 U/L C-Reactive Protein 1.18 MG/DL Total Protein 7.1 GM/DL Albumin 3.1 GM/DL Urine Color LIGHT-YELLOW Urine Turbidity CLEAR Urine pH 8.0 Urine Specific [place] 1.006 Urine Protein NEG mg/dL Urine Glucose (UA) NEG mg/dL Urine Ketones NEG mg/dL Urine Occult Blood NEG Urine Nitrite NEG Urine Bilirubin NEG Urine Urobilinogen LESS THAN 2.0 MG/DL Urine Leukocyte Esterase NEG Urine WBC LESS THAN 1 /hpf Urine Squamous Epithelial <1 /hpf Cells Microscopic Urinalysis Comment CATH-CULT NOT IND I spoke with Dr. Lorenz who states pt does not go to service. A call is placed to . Dr. Manrique returns call and patient will be admitted observation to her service. Plan is discussed with the patient and his family. They are in agreement with this plan of care. 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
[2017-05-14] MEDS ORDERED: ONDANSETRON HCL 4 MG/2 ML VIAL IV PUSH ONE (16:30)
[2017-05-14] MEDS ORDERED: MORPHINE SULFATE 4 MG/ML INJ IV PUSH ONE ×2 (16:30→18:30)
[2017-05-14 16:46] VITALS: O2SAT 100
[2017-05-14 17:17] LABS: APTT (PATIENT) 28.7 SEC (24.3-30.1)
--- NOTE | 2017-05-14 17:21 | RADRPT ---
EXAM DATE/TIME: 05/14/2017 17:06 [facility] COMPARISON: CT BRAIN W/O CONTRAST, March 07, 2014, 21:08. CT ABDOMEN & PELVIS W/O CONTRAST, April 05, 2017, 12:43. INDICATIONS : Evaluate for migrane. RADIATION DOSE: 56.35 CTDIvol (mGy) MEDICAL HISTORY : Hypertension. Cardiovascular disease Carcinoma, prostate.Lung cancer. SURGICAL HISTORY : Coronary artery stent. ENCOUNTER: Initial ACUITY: 4 - 6 months PAIN SCALE: 6/10 LOCATION: Bilateral cranial TECHNIQUE: Multiple contiguous axial images were obtained of the head. Using automated exposure control and adj ustment of the mA and/or kV according to patient size, radiation dose was kept as low as reasonably a chievable to obtain optimal diagnostic quality images. FINDINGS: CEREBRUM: The exam demonstrates a small benign-appearing calcification in the medial aspect of the left frontal lobe. This is similar previous exam. No mass is seen. No abnormal extra-axial fluid collections are identified. The ventricles are normal in size and configuration. POSTERIOR FOSSA: The cerebellum and brainstem are intact. The 4th ventricle is midline. The cerebellopontine angle i s unremarkable. EXTRACRANIAL: The visualized portion of the orbits is intact. SKULL: The calvaria is intact. No evidence of skull fracture. CONCLUSION: 1. Benign calcification in the medial aspect of the left frontal lobe. 2. No acute abnormality seen. Stable compared to previous dated 03/07/14. Regino Garcias MD on May 14, 2017 at 17:18 Board Certified Radiologist. This report was verified electronically.
--- NOTE | 2017-05-14 17:21 | RADRPT ---
EXAM DATE/TIME: 05/14/2017 16:22 [facility] COMPARISON: CHEST SINGLE AP, April 05, 2017, 11:31. INDICATIONS : Headache for two weeks. MEDICAL HISTORY : None. SURGICAL HISTORY : None. ENCOUNTER: Initial ACUITY: 1 day PAIN SCORE: 0/10 LOCATION: Bilateral chest FINDINGS: Scattered discoid atelectasis is noted within the right mid and lower lung dunn. The left lung is clear. The heart is stable. Degenerative changes and scoliosis of the thoracic spine are noted. CONCLUSION: 1. Discoid atelectasis within the right mid and lower lung field. 2. No pulmonary edema or focal alveolar consolidation. 3. Degenerative changes and scoliosis of the thoracic spine. Manny Lawton MD on May 14, 2017 at 17:15 Board Certified Radiologist. This report was verified electronically.
[2017-05-14 17:30] LABS: AUTOMATED NEUTROPHIL # 3.7 TH/MM3 (1.8-7.7); BASOPHIL % 0.4 % (0.0-2.0); EOSINOPHIL # 0.5 TH/MM3 (0-0.4); EOSINOPHIL % 6.3 % (0.0-4.0); HEMATOCRIT 36.2 % (39.0-51.0); HEMO FLAGS DIFF FINAL; LYMPH % 32.5 % (9.0-44.0); LYMPHOCYTE # 2.4 TH/MM3 (1.0-4.8); MEAN CELL VOLUME 83.1 FL (80.0-100.0); MEAN CORPUSCULAR HEMOGLOBIN 27.1 PG (27.0-34.0); MEAN CORPUSCULAR HGB CONC 32.6 % (32.0-36.0); MONO % 9.7 % (0.0-8.0); NEUT % 51.1 % (16.0-70.0); PLATELET COUNT 144 TH/MM3 (150-450); RED BLOOD COUNT 4.36 MIL/MM3 (4.50-5.90); RED CELL DISTRIBUTION WIDTH 16.8 % (11.6-17.2); WHITE BLOOD COUNT 7.3 TH/MM3 (4.0-11.0)
[2017-05-14 17:38] LABS: ALT (GPT) 20 U/L (12-78); ANION GAP 7 MEQ/L (5-15); AST (GOT) 17 U/L (15-37); BLOOD UREA NITROGEN 15 MG/DL (7-18); CHLORIDE 104 MEQ/L (98-107); GLOMERULAR FILTRATION RATE 63 ML/MIN (>89); POTASSIUM 3.6 MEQ/L (3.5-5.1); SODIUM (NA) 138 MEQ/L (136-145)
[2017-05-14 17:41] LABS: ALKALINE PHOSPHATASE 68 U/L (45-117); TOTAL BILIRUBIN ADULT 0.4 MG/DL (0.2-1.0)
[2017-05-14 17:49] LABS: CREATINE KINASE 21 U/L (39-308)
[2017-05-14 18:06] LABS: BLOOD, URINE NEG (NEG); GLUCOSE,URINE NEG (NEG); KETONE, URINE NEG (NEG); NITRITE,URINE NEG (NEG); SQUAMOUS EPITHELIAL CELL URINE <1 /hpf (0-5); URINE COLOR LIGHT-YELLOW (YELLW/STRAW)
[2017-05-14 18:10] LABS: COMMENT (UR) CATH-CULT NOT IND; CULTURE IF INDICATED CATH CULTURE NOT IND
[2017-05-14] MEDS ORDERED: NALOXONE HCL 0.4 MG/ML AMP IV PRN (19:15)
[2017-05-14] MEDS ORDERED: ONDANSETRON HCL 4 MG/2 ML VIAL IVP PRN (19:15)
[2017-05-14] MEDS ORDERED: ACETAMINOPHEN 325 MG TAB PO PRN (19:15)
[2017-05-14] MEDS ORDERED: SODIUM CHLORIDE 0.9% FLUSH 10 ML FLUSH IV FLUSH PRN (19:15)
[2017-05-14] MEDS ORDERED: LORazepam 2 MG/ML VIAL IV PUSH ONE (19:15)
[2017-05-14 19:38] VITALS: BP 185/90; PULSE 45; RESP 16; O2SAT 99
[2017-05-14] MEDS ORDERED: HYDR-3583 PO (20:09)
[2017-05-14] MEDS ORDERED: AMBI10TA PO (20:09)
[2017-05-14] MEDS ORDERED: MONT10TA2 PO (20:09)
[2017-05-14] MEDS ORDERED: COLA100C PO (20:09)
[2017-05-14] MEDS ORDERED: NALO1TAB2 PO (20:10)
[2017-05-14] MEDS: SODIUM CHLORIDE 0.9% FLUSH 10 ML FLUSH IV FLUSH SCH (21:22)
[2017-05-14] MEDS ORDERED: GADODIAMIDE PF 287 MG/ML 20 ML VIAL (for RAD MRI) IV ONE (22:34)
--- NOTE | 2017-05-14 22:57 | RADRPT ---
EXAM DATE/TIME: 05/14/2017 21:39 [facility] COMPARISON: No previous studies available for comparison. INDICATIONS : Cephalgia. CONTRAST: 20 cc Omniscan (gadodiamide) IV MEDICAL HISTORY : Carcinoma, prostate. SURGICAL HISTORY : Colon resection. Umbilical hernia repair. Tonsillectomy. Prostate seeds ENCOUNTER: Initial ACUITY: 1 day PAIN SCORE: 6/10 LOCATION: cranial TECHNIQUE: Multiplanar, multisequence MRI of the brain was performed both prior to and following the administrat ion of paramagnetic contrast. FINDINGS: Mild white matter ischemic changes present. No recent infarct. No mass effect or midline shift. No hy drocephalus. No abnormal enhancement post contrast. Small hemosiderin deposit left parietal lobe. Ret ention cyst right maxillary sinus. CONCLUSION: 1. No acute findings. Mild white matter ischemic changes. No recent infarct or abnormal enhancement. Sher Argueta MD on May 14, 2017 at 22:51 Board Certified Radiologist. This report was verified electronically.
[2017-05-15] VITALS (8 sets, daily range): BP systolic 122–171; BP diastolic 61–86; PULSE 44–64; RESP 16–18; TEMP 96.5–98.2; O2SAT 93–99
[2017-05-15] MEDS: ZOLPIDEM TARTRATE 10 MG TAB PO PRN ×3 (00:24→21:59)
[2017-05-15] MEDS ORDERED: GLUCAGON 1 MG/ML VIAL OTHER PRN (01:00)
[2017-05-15] MEDS ORDERED: ACETAMINOPHEN 1000 MG/100 ML VIAL IV ONE (01:00)
[2017-05-15] MEDS ORDERED: DEXTROSE 50% IN WATER 50 ML VIAL(D50) IV PRN (01:00)
[2017-05-15] MEDS: INSULIN DETEMIR 100 UNITS/ML VIAL SQ SCH ×2 (02:07→21:23)
[2017-05-15] MEDS: INSULIN ASPART SUPPLEMENTAL SCALE SQ SCH ×4 (05:07→21:21)
[2017-05-15 06:53] LABS: AUTOMATED NEUTROPHIL # 2.7 TH/MM3 (1.8-7.7); BASOPHIL % 0.4 % (0.0-2.0); EOSINOPHIL # 0.4 TH/MM3 (0-0.4); EOSINOPHIL % 7.1 % (0.0-4.0); HEMATOCRIT 34.7 % (39.0-51.0); HEMO FLAGS DIFF FINAL; LYMPHOCYTE # 1.5 TH/MM3 (1.0-4.8); MEAN CELL VOLUME 82.6 FL (80.0-100.0); MEAN CORPUSCULAR HEMOGLOBIN 28.1 PG (27.0-34.0); MONO % 10.9 % (0.0-8.0); NEUT % 52.6 % (16.0-70.0); PLATELET COUNT 119 TH/MM3 (150-450); RED CELL DISTRIBUTION WIDTH 16.8 % (11.6-17.2); WHITE BLOOD COUNT 5.1 TH/MM3 (4.0-11.0)
--- NOTE | 2017-05-15 06:55 | MB ---
cc: ANIBAL ROWLAND,CAMILA Jo M.D. DATE OF CONSULTATION: 05/14/2017 REASON FOR CONSULTATION: 81 Year-old male with history of melanoma. Prostate cancer Recent failure to thrive with weakness, weight loss, severe headaches uncontrolled by narcotics and abdominal pain. He is so debilitated workup as an outpatient has become impossible. PATIENT PROFILE The patient is an 81-year-old male. He is . He is retired. 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 He has three children. He does not smoke and does not drink. HISTORY OF PRESENT ILLNESS: The patient is an 81-year-old male who was diagnosed with prostate cancer in 2007. He was treated with external beam radiation completed in 2008. In February 2013 he had a pulmonary nodule. It was biopsied and no one expected this to be prostate cancer but the histology was adenocarcinoma, it stained positive for a Prostate-specific antigen. He was treated with radiation therapy and on two other occasions developed nodules in the right lung and received radiation. He developed a severe radiation pneumonitis requiring steroids which finally improved but left him debilitated. His Prostate-specific antigens have been extremely low, the most recent PSA is 0.07 on 04/07/2017. He developed a melanoma over the scalp. He had extensive surgery on 12/22/2016. The melanoma was Breslow depth 1.75 mm, John level IV, pathologic T2A. He underwent a wide excision on 01/13/2017 removing lymph nodes. There was no residual melanoma and lymph nodes were benign. He has had diabetes. He has had two previous myocardial infarctions. He has atrial fibrillation and takes Xarelto. His current problem dates back to about 5 or 6 months. He began to deteriorate with increasing weakness. He became very feeble and frail. He can only walk for a short distance before he was exhausted. He has had abdominal pain with cramps primarily in the left lower quadrant. He has had early satiety. He has developed severe headaches, occurring about every 2 days. The headaches are generally frontal. They are not relieved by 20 mg of oxycodone. The headaches are so painfu that he feels like he is going to and at times wishes he would . This has been a gentleman who has been stoic in the past. He was found to have an elevated sed rate of 67 on 04/07/2017. I tried to give him a brief course of steroids to see if the headaches wound improve. They did not and the steroids actually caused them in some ways to be transiently worse. Today I was contacted by his as his headache was severe, unremitting, and unrelieved by narcotics. I attempted to make arrangements for an outpatient MRI. He is claustrophobic and could not undergo an outpatient MRI. I could not make arrangements for CT scan of the brain with contrast. He has an allergy to contrast and has problems with steroids. Regarding the two malignancies he has had extensive evaluation. He had an MRI of the pelvis on 04/05/2017 showing a single small focus of metastatic disease in the right ilium just above the acetabulum. He had a PET scan, in I believe early March of 2017 which I have reviewed. There is an area in the right ileum that was of concern. He also appears to have a stress fracture involving the pubic ramus. I had reviewed the films with Dr. Herrera Garcias (radiologist) and ultimately it appear that he may have a single metastatic lesion involving bone or at most two and this is more likely to be prostate cancer. There was no actual bone destruction and these findings would not account for his failure to thrive. He has also been referred to Dr. Gayle and at some point in the future endoscopy was planned but at this point it does not appear that he has the strength to proceed. He is now being admitted to the hospital because of the continued deterioration, severe headaches, abdominal pain and a relentless deterioration which I suspect will eventually result in unless things can be rectified. PAST SURGICAL HISTORY 1. Angioplasty 2007. 2. Removal of melanoma from the scalp. 3. Hemorrhoidectomy. 4. Inguinal and umbilical hernia repair. 5. Biopsy of prostate [address] Walls revealing adenocarcinoma. 6. Tonsillectomy. 7. Removal of melanoma of the scalp in December 2016, pathologic T2a, N0, M0. 8. Cataract surgery. 9. Colon resection for diverticulitis by Dr. Beyer in 2011 with Robot PAST MEDICAL HISTORY 1. Prostate cancer with documented metastatic disease to the lung treated on several occasions with radiation. 2. Radiation pneumonitis. 3. Arthritis. 4. Atrial fibrillation. 5. Coronary stents. 6. Diabetes type 2. 7. Diverticulosis, and at one point diverticulitis requiring colon resection 2011. 8. Myocardial infarction 2007 and 2010. 9. Elevated cholesterol. 10. Hypertension. 11. Gastroparesis. 12. UTIs MEDICATIONS 1. Colace 2. Flonase 3. Hydrocodone/ actominophen 10/325, 1-2 tablets every 6 hours needed for pain. 4. Insulin 5. Lupron every 3 months 6. Linzess. 7. Lisinopril. 8. Lorazepam. 9. Metoprolol. 10. Inhaler. 11. Singulair. 12. Protonix. 13. Xarelto. 14. Crestor. 15. Flomax. 16. Ambien. ALLERGIES CONTRAST MEDIA. FAMILY HISTORY Noncontributory. REVIEW OF SYSTEMS CONSTITUTIONAL: The patient a continued deterioration with global weakness. HEAD, EYES, EARS, NOSE, AND THROAT: Vision slight blurring, hearing slight decrease. GASTROINTESTINAL: Difficulty swallowing, early satiety, weight loss, poor appetite, occasional pain in the left side of the abdomen. GENITOURINARY: Occasional pain in the scrotal area. MUSCULOSKELETAL: Generalized arthritis occasional pain in the pelvis. NEUROLOGIC: Severe debilitating headaches, primarily frontal with a feeling of fuzziness. PSYCHIATRIC: The patient is severely depressed due to illness and also his social situation. He and his are raising two young grandchildren at their home due to social problems involving their son and daughter in law. PHYSICAL EXAMINATION: GENERAL: Reveals a gentleman, who despite being 81 appears much older. He is weak, frail and gaunt. VITAL SIGNS: Blood pressure 180/90, respiratory rate 16, pulse 60 afebrile. O2 sat 99%. HEAD, EYES, EARS, NOSE, AND THROAT: Head is normocephalic. Sclera and conjunctivae are normal. Oropharynx unremarkable. No adenopathy. HEART: Regular irregular rhythm, rate 70. LUNGS: Clear. ABDOMEN: The abdomen is gaunt, no hepatosplenomegaly. EXTREMITIES: Trace edema. MUSCULOSKELETAL: Muscle wasting. NEUROLOGIC: No focal weakness. Cognition normal. PSYCHIATRIC: Depressed. On 04/05/2017 he had an abdominal pelvic CT scan which was unremarkable except for arthritic changes. An MRI of the pelvis showed a focus of metastatic disease in the right ilium just above the right acetabulum. There are abnormalities involving the pubic symphysis more suggestive of a stress fracture then metastatic disease. ASSESSMENT The patient is an 81-year-old male who has had a progressive global deterioration in health over the past 6 months and at this rate will probably within the next 6 months unless we are able to reverse the course of his illness. He has a history of melanoma but no documented metastatic disease. He has a history of prostate cancer and has had pulmonary metastases which were treated with radiation. It appears that he may have one or two small metastatic lesions to bone which should not be problematic. He has other significant problems such as coronary artery disease, diabetes, gastroparesis. His major issues at the present time are; 1. Severe headaches which are profoundly debilitating and not relieved by narcotics. 2. Abdominal pain, weight loss, early satiety. 3. A progressive global and rapid deterioration. 4. Outpatient workup is impossible. It is been attempted unsuccessfully. PLAN The patient is admitted to the hospital. I will ask Neurology to see him. I have ordered an MRI of the brain. He will need premedication as he is profoundly claustrophobic. I will ask Gastroenterology to see him because of the abdominal complaints and weight loss. I am not ordering any radiographic studies of the thorax, abdomen and pelvis as he has had them recently. In looking at studies done today he had a chest x-ray showing discoid atelectasis. He also had a head CT scan done without contrast showing benign calcifications in the medial aspect of the left frontal lobe. MD FRANCK Martin/gera /8:26 PM /6:17 AM JOAQUIN
[2017-05-15 06:58] LABS: BICARBONATE 27.4 MEQ/L (21.0-32.0); POTASSIUM 3.7 MEQ/L (3.5-5.1)
[2017-05-15] MEDS: HYDROmorphone HCL PF 1 MG/ML VIAL IV PRN ×2 (08:00→21:01)
[2017-05-15] MEDS: SODIUM CHLORIDE 0.9% FLUSH 10 ML FLUSH IV FLUSH SCH ×2 (09:00→20:52)
--- NOTE | 2017-05-15 11:32 | PD.CONS ---
GI Consult GI Consult SEE FORMAL GI CONSULTATION ALSO ([id number]) ASSESSMENT/PLAN: 1. Early Satiety-prob gastroparesis. Bethanechol stopped because of possible BENAVIDEZ. Azithromycin caused nausea. EES helped in the past 2. Constipation-opiate induced. Linzess does help 3. LLQ-better with a BM 4. Wt loss/failure to thrive 5. BENAVIDEZ PLAN: 1. EES 2. Try to limit narcotics if possible (can make his GI sxs worse) 3. Last EGD/COLON were in 04/12. low yield to repeat so soon but will consider if he does not improve -however he does not think he can take a prep 4. D/W pt and a J tube (a G-tube alone prob won't work) , EGD with Botox and gastric pacemakers It was a pleasure seeing Manny Rubio . Thank you for this consult. Entered by: Cristobal Hurtado MD May 15, 2017 11:32
--- NOTE | 2017-05-15 12:24 | HHI.HP ---
HPI Service [facility] Primary Care Physician Eris Daniels MD Admission Diagnosis intractable headache; r/o brain metastases Diagnoses: Chief Complaint: headache, weakness Travel History International Travel<30 Days: No Contact w/Intl Traveler <30 Da: No Traveled to Known Affected Are: No History of Present Illness This is a pleasant 81-year-old elderly white male with significant past medical history of prostate cancer with pulmonary metastasis treated with radiation, melanoma of the scalp with extensive surgery and excision November 2016, diabetes , myocardial infarction, A. 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 Patient was sent by Dr. Herndon for further evaluation for intractable headaches, weakness, failure to thrive, abdominal pain and weight loss. Patient endorses history of severe headaches for the last couple months, indicates that they are frontal type headaches pounding in nature, his vision feels fuzzy he feels lightheaded. Indicates that walking sometimes makes the headaches worse. He was taking [place] 1 but lately has increased to 2 tabs without any major relief. There doesn't seem to be any triggers to the headaches, no photophobia, no phonophobia. He has also been very weak and frail, has had abdominal pain and cramps of the left lower quadrant. He was supposed to have outpatient GI evaluation but because of his debilitated state he has not been able to do so. He has been referred to Dr. Gayle. Because of severe claustrophobia, he was not able to have imaging of the brain. Patient was evaluated in the emergency room, laboratory workup was essentially unremarkable. Initial CT of the brain was negative. A brain MRI was completed that did not reveal any acute findings. At this time, headache is somewhat relief. He's resting comfortably. His is at the bedside providing a lot of the details of his recent medical changes. Patient is admitted for further evaluation and treatment. Review of Systems Constitutional: COMPLAINS OF: Fatigue, Dizziness, Change in appetite, DENIES: Diaphoretic episodes, Fever, Weight gain, Weight loss, Chills, Night Sweats Endocrine: DENIES: Heat/cold intolerance, Polydipsia, Polyuria, Polyphagia Eyes: DENIES: Blurred vision, Diplopia, Eye inflammation, Eye pain, Vision loss , Photosensitivity, Double Vision Ears, nose, mouth, throat: DENIES: Tinnitus, Hearing loss, Vertigo, Nasal discharge, Oral lesions, Throat pain, Hoarseness, Ear Pain, Running Nose, Epistaxis, Sinus Pain, Toothache, Odynophagia Cardiovascular: DENIES: Chest pain, Palpitations, Syncope, Dyspnea on Exertion , PND, Lower Extremity Edema, Orthopnea, Claudication Gastrointestinal: DENIES: Abdominal pain, Black stools, Bloody stools, Constipation, Diarrhea, Nausea, Vomiting, Difficulty Swallowing, Anorexia Genitourinary: DENIES: Sexual dysfunction, Urinary frequency, Urinary incontinence, Urgency, Hematuria, Dysuria, Nocturia, Penile Discharge, Testicular Pain, Testicular Swelling Musculoskeletal: DENIES: Joint pain, Muscle aches, Stiffness, Joint Swelling, Back pain, Neck pain Hematologic/lymphatic: DENIES: Bruising, Lymphadenopathy Immunologic/allergic: DENIES: Eczema, Urticaria Neurologic: COMPLAINS OF: Headache, DENIES: Abnormal gait, Localized weakness , Paresthesias, Seizures, Speech Problems, Tremor, Poor Balance Psychiatric: DENIES: Anxiety, Confusion, Mood changes, Depression, Hallucinations, Agitation, Suicidal Ideation, Homicidal Ideation, Delusions Past Family Social History Past Medical History 1. Prostate cancer with documented metastatic disease to the lung treated on several occasions with radiation. 2. Radiation pneumonitis. 3. Arthritis. 4. Atrial fibrillation. 5. Coronary stents. 6. Diabetes type 2. 7. Diverticulosis, and at one point diverticulitis requiring colon resection 2011. 8. Myocardial infarction 2007 and 2010. 9. Elevated cholesterol. 10. Hypertension. 11. Gastroparesis. 12. UTIs 13. Recent PET scan findings of single metastatic lesion right ischium Past Surgical History 1. Angioplasty 2007. 2. Removal of melanoma from the scalp. 3. Hemorrhoidectomy. 4. Inguinal and umbilical hernia repair. 5. Biopsy of prostate [address] Walls revealing adenocarcinoma. 6. Tonsillectomy. 7. Removal of melanoma of the scalp in November/December 2016, pathologic T2a, N0, M0. 8. Cataract surgery. 9. Colon resection for diverticulitis by Dr. Beyer in 2011 with [place]ot 10. Recent cardiac catheter with stent insertion January [address] artis Reported Medications Reported Meds & Active Scripts Active Reported Movantik (Naloxegol) 25 Mg Tab 25 Mg PO DAILY Ambien (Zolpidem Tartrate) 10 Mg Tab 10 Mg PO HS PRN Singulair (Montelukast Sodium) 10 Mg Tab 10 Mg PO HS Colace (Docusate Sodium) 100 Mg Capsule 100 Mg PO BID Hydrocodone-Acetaminophen 10-325 mg Tab 1-2 Tab PO Q6H PRN Crestor (Rosuvastatin Calcium) 40 Mg Tab 40 Mg PO HS Novolog Inj (Insulin Aspart) 1,000 Unit/10 Ml Vial 0 SQ BID Sliding Scale as directed. Levemir Inj (Insulin Detemir) 1,000 unit/ 10 ML Vial 10 Units SQ HS Do not mix with any other Insulin. Lupron Depot Inj Kit (Leuprolide (3 Month) Inj Kit) 22.5 Mg Kit 22.5 Mg IM Q84D Metoprolol Tartrate 25 Mg Tab 25 Mg PO BID Pantoprazole (Pantoprazole Sodium) 40 Mg Tab 40 Mg PO DAILY Tamsulosin (Tamsulosin HCl) 0.4 Mg Cap 0.4 Mg PO HS Lisinopril 40 Mg Tab 40 Mg PO BID Xarelto (Rivaroxaban) 20 Mg Tab 20 Mg PO HS Lorazepam 0.5 Mg Tab 0.5 Mg PO BID PRN Linzess (Linaclotide) 290 Mcg Cap 290 Mcg PO DAILY PRN Dulera 120 Act Inh (Mometasone-Formoterol 120 Act Inh) 100-5 Mcg/Act Inh 2 Puff INH BID PRN Flonase Nasal [place] (Fluticasone Nasal [place]) 50 Mcg/Act [place] 2 Spr EACH NARE BID PRN Allergies: Coded Allergies: Tetanus Toxoid (Verified Allergy, Severe, RESPIRATORY (TO OLD FORM OF TETNUS - NOT WHAT IS USED NOW, 05/14/17) Contrast Media (Verified Allergy, Intermediate, Nausea/Vomiting, 05/14/17) DIZZINESS, SWELLING Active Ordered Medications Inpatient Medications Acetaminophen (Ofirmev Inj) 1,000 mg ONCE ONCE IV Last administered on t 04:55; Start 05/15/17 at 01:00; Stop 05/15/17 at 01:01; Status DC Acetaminophen (Tylenol) 650 mg Q4H PRN PO TEMP > 100.4; Start 05/14/17 at 19:15 Dextrose (D50w (Vial) Inj) 50 ml UNSCH PRN IV HYPOGLYCEMIA-SEE COMMENTS; Start 05/15/17 at 01:00 Docusate Sodium (Colace) 100 mg BID PO ; Start 05/15/17 at 21:00; Status UNV Erythromycin Ethylsuccinate (Ees 200 Mg/5 ml Liq) 200 mg Q8HR PO ; Start at 14:00; Status UNV Glucagon (Glucagon Inj) 1 mg UNSCH PRN OTHER HYPOGLYCEMIA-SEE COMMENTS; Start 05/15/17 at 01:00 Hydromorphone HCl (Dilaudid Pf Inj) 1 mg Q4H PRN IV PAIN SCALE 5-10 Last administered on 05/15/17 08:00; Start 05/15/17 at 08:00 Insulin Aspart (NovoLOG SUPPLEMENTAL SCALE) 1 ACHS SLIDING SCALE SQ Last administered on 05/15/17 05:07; Start 05/15/17 at 07:00 Insulin Detemir (Levemir Inj) 10 units HS SQ ; Start 05/15/17 at 21:00; Status UNV Lorazepam (Ativan Inj) 1 mg ONCE ONCE IV PUSH Last administered on 05/14/17 21:21; Start 05/14/17 at 19:15; Stop 05/14/17 at 19:55; Status DC Metoprolol Tartrate (Lopressor) 25 mg BID PO ; Start 05/15/17 at 21:00; Status UNV Montelukast Sodium (Singulair) 10 mg HS PO ; Start 05/15/17 at 21:00; Status UNV Morphine Sulfate (Morphine Inj) 4 mg ONCE ONCE IV PUSH Last administered on 18:38; Start 05/14/17 at 18:30; Stop 05/14/17 at 18:31; Status DC Naloxone HCl (Narcan Inj) 0.4 mg UNSCH PRN IV SEE LABEL COMMENTS; Start at 19:15 Non-Formulary Medication 40 mg HS PO CM; Start 05/15/17 at 21:00; Status UNV Ondansetron HCl (Zofran Inj) 4 mg Q6H PRN IVP NAUSEA OR VOMITING; Start at 19:15 Pantoprazole Sodium (Protonix) 40 mg DAILY PO ; Start 05/16/17 at 09:00; Status UNV Rivaroxaban (Xarelto) 20 mg HS PO ; Start 05/15/17 at 21:00; Status UNV Sodium Chloride (NS Flush) 2 ml BID IV FLUSH Last administered on 05/14/17t 21: 22; Start 05/14/17 at 21:00 Tamsulosin HCl (Flomax) 0.4 mg HS PO ; Start 05/15/17 at 21:00; Status UNV Zolpidem Tartrate (Ambien) 10 mg HS PRN PO SLEEP Last administered on 00:24; Start 05/14/17 at 20:00 Family History Reviewed, non contributory Social History 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 No ETOH, no substance abuse, no smoking. Physical Exam Vital Signs Vital Signs Date Time Temp Pulse Resp B/P Pulse Ox O2 Delivery O2 Flow Rate FiO2 05/15/17 12:00 96.8 44 18 153/73 98 05/15/17 08:00 96.5 44 17 148/66 98 05/15/17 06:48 19 05/15/17 04:50 98.2 50 16 122/61 97 05/15/17 01:00 46 05/15/17 00:00 97.0 64 18 171/83 93 05/14/17 19:55 53 18 96 Room Air 05/14/17 19:38 45 16 185/90 99 Room Air 05/14/17 16:46 100 Room Air 05/14/17 16:38 57 16 97 Room Air 05/14/17 16:33 99 05/14/17 16:02 98.2 65 18 151/75 98 Physical Exam GENERAL: This is a well-nourished, well-developed patient, in no apparent distress. SKIN: No rashes, ecchymoses or lesions. Cool and dry. HEAD: Scar to right scalp from previous surgery. Normocephalic. No temporal or scalp tenderness. EYES: Pupils equal round and reactive. Extraocular motions intact. No scleral icterus. No injection or drainage. ENT: Nose without bleeding, purulent drainage or septal hematoma. Throat without erythema, tonsillar hypertrophy or exudate. Uvula midline. Airway patent. NECK: Trachea midline. No JVD or lymphadenopathy. Supple, nontender, no meningeal signs. CARDIOVASCULAR: Regular rate and rhythm without murmurs, gallops, or rubs. RESPIRATORY: Clear to auscultation. Breath sounds equal bilaterally. No wheezes , rales, or rhonchi. GASTROINTESTINAL: Abdomen soft, non-tender, nondistended. No hepato-splenomegaly , or palpable masses. No guarding. MUSCULOSKELETAL: Extremities without clubbing, cyanosis, or edema. No joint tenderness, effusion, or edema noted. No calf tenderness. Negative Homans sign bilaterally. NEUROLOGICAL: Awake and alert. Cranial nerves II through XII intact. Motor and sensory grossly within normal limits. Five out of 5 muscle strength in all muscle groups. Normal speech. Laboratory Laboratory Tests Test 05/14/17 05/14/17 05/15/17 16:45 17:35 06:00 White Blood Count 7.3 5.1 Red Blood Count 4.36 4.20 Hemoglobin 11.8 11.8 Hematocrit 36.2 34.7 Mean Corpuscular Volume 83.1 82.6 Mean Corpuscular Hemoglobin 27.1 28.1 Mean Corpuscular Hemoglobin 32.6 34.0 Concent Red Cell Distribution Width 16.8 16.8 Platelet Count 144 119 Mean Platelet Volume 9.6 9.5 Neutrophils (%) (Auto) 51.1 52.6 Lymphocytes (%) (Auto) 32.5 29.0 Monocytes (%) (Auto) 9.7 10.9 Eosinophils (%) (Auto) 6.3 7.1 Basophils (%) (Auto) 0.4 0.4 Neutrophils # (Auto) 3.7 2.7 Lymphocytes # (Auto) 2.4 1.5 Monocytes # (Auto) 0.7 0.5 Eosinophils # (Auto) 0.5 0.4 Basophils # (Auto) 0.0 0.0 CBC Comment DIFF FINAL DIFF FINAL Differential Comment Erythrocyte Sedimentation Rate 54 Prothrombin Time 11.0 Prothromb Time International 1.0 Ratio Activated Partial 28.7 Thromboplast Time Sodium Level 138 139 Potassium Level 3.6 3.7 Chloride Level 104 103 Carbon Dioxide Level 27.0 27.4 Anion Gap 7 9 Blood Urea Nitrogen 15 14 Creatinine 1.12 1.06 Estimat Glomerular Filtration 63 67 Rate Random Glucose 141 154 Calcium Level 9.3 8.8 Total Bilirubin 0.4 Aspartate Amino Transf 17 (AST/SGOT) Alanine Aminotransferase 20 (ALT/SGPT) Alkaline Phosphatase 68 Total Creatine Kinase 21 C-Reactive Protein 1.18 Total Protein 7.1 Albumin 3.1 Urine Color LIGHT-YELLOW Urine Turbidity CLEAR Urine pH 8.0 Urine Specific [place] 1.006 Urine Protein NEG Urine Glucose (UA) NEG Urine Ketones NEG Urine Occult Blood NEG Urine Nitrite NEG Urine Bilirubin NEG Urine Urobilinogen LESS THAN 2.0 Urine Leukocyte Esterase NEG Urine WBC LESS THAN 1 Urine Squamous Epithelial <1 Cells Microscopic Urinalysis Comment CATH-CULT NOT IND Result Diagram: 05/15/17 0600 05/15/17 0600 Imaging Last Impressions Head CT 05/14/17 1618 Signed Impressions: Service Date/Time: Sunday, May 14, 2017 17:06 - CONCLUSION: 1. Benign calcification in the medial aspect of the left frontal lobe. 2. No acute abnormality seen. Stable compared to previous dated 03/07/14. Regino Garcias MD Chest X-Ray 05/14/17 1618 Signed Impressions: Service Date/Time: Sunday, May 14, 2017 16:22 - CONCLUSION: 1. Discoid atelectasis within the right mid and lower lung field. 2. No pulmonary edema or focal alveolar consolidation. 3. Degenerative changes and scoliosis of the thoracic spine. Manny Lawton MD Brain MRI 05/14/17 0000 Signed Impressions: Service Date/Time: Sunday, May 14, 2017 21:39 - CONCLUSION: 1. No acute findings. Mild white matter ischemic changes. No recent infarct or abnormal enhancement. Sher Argueta MD Assessment and Plan Problem List: (1) Intractable headache (2) History of melanoma (3) Decreased appetite (4) Malignant neoplasm of prostate metastatic to lung (5) HTN (hypertension) (6) CAD (coronary artery disease) (7) Diabetes mellitus (8) Radiation pneumonitis (9) Abdominal pain (10) Constipation (11) Atrial fibrillation Assessment and Plan Admit to Dr. Dangelo 81-year-old elderly male, history of prostate cancer and melanoma. Presented with persistent headache, weakness, abdominal pain. Worsening headache, associated with lightheadedness. No longer being controlled with oral narcotics. Has had trials of steroids, -MRI of the brain completed, no acute findings Continue with pain management Neurology consultation in place Abdominal pain Constipation -GI has been consulted for evaluation -Continue with Linzess -Bowel regimen History of prostate cancer with metastasis and previous radiation Melanoma, had resection Recent PET scan findings of single metastatic lesion right ischium -Dr. Herndon is following patient A. fib, currently sinus rhythm. Patient noted bradycardic on monitor, heart rate 40s -50s Continuous cardiac telemetry Continue with Xarelto Resume Lopressor with hold parameters, hold for heart rate less than 50 Hypertension, stable Continue home medications Type 2 diabetes continue with Accu-Cheks before meals and at bedtime with low-dose insulin therapy Coronary artery disease Recent admission to [facility] for chest pain, had cardiac catheter with stent. Patient denies any recent chest pain, no shortness of breath. -Continue home medications Weakness, physical debility -Physical therapy for evaluation and treatment Home medications reviewed, initiated as indicated Continue with Xarelto for DVT prophylaxis Plan of care has been discussed with the patient, his , attending, registered nurse. Further management of the patient will be dependent on the hospital course This patient was seen by myself and Dr. Dangelo, this H&P is written on his behalf Problem Qualifiers (1) Intractable headache: Qualified Code: R51 - Acute intractable headache, unspecified headache type (2) HTN (hypertension): Qualified Code: I10 - Essential hypertension (3) CAD (coronary artery disease): Qualified Code: I25.10 - Coronary artery disease involving squaxin coronary artery of squaxin heart without angina pectoris (4) Diabetes mellitus: Qualified Code: E11.8 - Type 2 diabetes mellitus with complication, unspecified fdc insulin use status (5) Abdominal pain: Qualified Code: R10.84 - Generalized abdominal pain (6) Constipation: Qualified Code: K59.00 - Constipation, unspecified constipation type (7) Atrial fibrillation: Qualified Code: I48.91 - Atrial fibrillation, unspecified type Ely Stevenson May 15, 2017 12:24
[2017-05-15] MEDS ORDERED: LINACLOTIDE 290 MCG PO PRN (12:45)
--- NOTE | 2017-05-15 13:30 | EKG ---
Date Performed: 05/14/2017 Time Performed: 16:51:14 PTAGE: 81 years EKG: SINUS BRADYCARDIA WITH OCCASIONAL SUPRAVENTRICULAR PREMATURE COMPLEXES SEPTAL MYOCARDIAL IN FARCTION ABNORMAL ECG PREVIOUS TRACING : 04/05/2017 13.06 Compared to prior tracing no significant change DOCTOR: Joel Kapadia Interpretating Date/Time 05/15/2017 13:28:07
[2017-05-15] MEDS: SODIUM CHLOR 0.9% 1000 ML INJ 1,000 ML IV SCH (14:15)
--- NOTE | 2017-05-15 14:43 | MB ---
cc: MORENA GAYLE M.D.,ANIBAL VALDEZ,CAMILA Jo M.D. DATE OF CONSULTATION: 05/15/2017 DATE OF : 1935 REASON FOR CONSULTATION: I was asked to see this patient at the request of Dr. Herndon's evaluation of failure to thrive and weight loss. HISTORY OF PRESENT ILLNESS: The patient is an 81-year-old white male who is followed by Dr. Gayle in the office. He has quite a complicated past medical history which includes melanoma, prostate cancer, atrial fibrillation. As well there is significant gastroparesis. The patient has had arthritis and apparently some metastatic disease to the ileum/bones and is taking narcotics which lead to significant constipation. In the office he was been treated with some success with Linzess for his constipation, this does help, movantik did not help as much. As far as gastroparesis, he was on bethanechol which helped him somewhat but this was stopped because of possible headaches, Azithromycin caused nausea and was stopped. He said the Azithromycin in the past did have some relief. Why he has gastroparesis unclear but it is documented on the gastritic emptying scan, he has severe gastroparesis. Apparently the patient developed a melanoma of the scalp and had extensive surgery in this regard. Over the last several months the patient has been deteriorating - He has had weakness and fatigue, he cannot walk far. He has had early satiety and severe headaches which has essentially been retractable. He was admitted because of this. In regards to early satiety, it occurs post prandial and there is no vomiting. There is some nausea. His constipation mentioned above has been going on for some time. He has intermittent left lower quadrant pain which is crampy in nature. The pain seemed to be relieved with a bowel movement. He does have history diverticulitis requiring a resection of left colon. There has been no melena, hematochezia, no bronson diarrhea, no vomiting of blood, dysphagia, heartburn issues, he has lost weight but unable to quantitate the amount. His past upper endoscopy was done March 2015, revealed benign gastric polyps and gastritis with H. Pylori. The last colonoscopy done at the same time revealed anus colon polyp, ascending colon and a few sigmoid diverticula, nothing that significant. PAST HISTORY SURGERY: 1. Includes the above-mentioned upper endoscopy 2. colonoscopy 3. tonsillectomy. 4. He has had removal of melanoma of the scalp earlier this year. 5. Cataract surgery. 6. He has a colonic section diverticulitis 7. a prostate biopsy. 8. Inguinal umbilical hernia repairs. 9. Hemorrhoidectomy 10. Sterile catheterization with angioplasty. 11. Cardiac stenting. PAST HISTORY 1. Coronary artery disease with myocardial infarction. 2. Dyslipidemia. 3. severe gastroparesis 4. Gastric emptying scan. 5. Urinary tract infection. 6. hypertension 7. diverticulosis 8. Diverticulitis 9. concurrent diverticular only a few, he only had a few diverticula in the left colon, last colonoscopy. 10. Atrial fibrillation on Xarel. 11. Significant radiation pneumonitis 12. arthritis 13. prostate cancer with metastasis of lungs. Treated with radiation. MEDICATIONS AN OUTPATIENT; 1. Bethanechol but is off-and-on because of headaches. 2. He has been on Azithromycin. 3. Colace. 4. Linzess 5. Occasional movantik 6. Flonase 7. Hydrocodone. 8. Insulin. 9. Lupron 10. Lisinopril 11. Lorazepam. 12. Singulair 13. Albuterol inhaler 14. Metoprolol 15. Protonix 16. Xarelto. 17. Crestor. 18. Flomax 19. Ambien. ALLERGIES Apparently some allergic reaction to contrast, not really sure. FAMILY HISTORY: Noncontributory for this admission. REVIEW OF SYSTEMS Intermittent weight loss. Currently no chest pain, palpitation with shortness of breath. He has had continued weakness. GASTROINTESTINAL: Early satiety with poor appetite, left side of the abdomen. Pain in left abdomen. OTHERWISE: Unremarkable ten-point of systems. MEDICATIONS Medications in the hospital include 1. Dilaudid 2. Insulin sliding scale. 3. Levemir 4. Glucagon 5. Ambien 6. Tylenol 7. Zofran. 8. Narcan. PHYSICAL EXAMINATION: VITAL SIGNS: Physical exam; blood pressure is 148/66, resting rate of 17, pulse of 44, temperature 96.5. IN GENERAL: In general he is an elderly white male resting comfortably at this time. He is somewhat overweight appears to be in no acute GI distress. HEAD, EYES, EARS, NOSE, AND THROAT: His pupils equal and react light. No obvious scleral icterus. Oropharynx dental caries but no jennifer lesions. SKIN: Intact. NECK: Supple without lymphadenopthy. LUNGS: Clear to auscultation. HEART: Irregular, rate and rhythm, no gross murmurs were heard. ABDOMEN: Soft, nondistended and nontender. No organomegaly, no masses, no hernias. No left lower quadrant tenderness. EXTREMITIES: No sign of any clubbing, there is trace edema. NEUROLOGICALLY: He is alert and oriented times three. SKIN: Warm and dry. He does have a scar on his left head which is healing. NEUROLOGICALLY: Alert and oriented times three. LABORATORY FINDINGS: Database; No imaging studies were done but apparently he had an abdominal pelvic CT scan done in March 2017 which is unremarkable except for arthritic changes. DR. Herndon also mentioned that an MRI the pelvis showed a foci metastasis to the right ileum just above the right acetabulum. There is also possibility of a stress fracture/metastatic disease in the pubic symphysis. Other important data base includes; Slightly anemic, hemoglobin 11.8 which is stable. White blood cell count is 5100, MCV 82.6, platelet count 119,000 a sed rate was elevated at 54 on a prothrombin time 11, INR 1.0, PT 20.7. Chemistry revealed normal liver function test with bilirubin of 0.4, SGOT of 70, SGPT of 22, alk phos 68, BUN 15, creatinine 1.12 with the decreased to 1.06 today. Calcium 9.3. The brain MRI revealed mild white matter changes and head CT scan shows some benign calcifications in the medial aspects of the left frontal lobe. IMPRESSION Early satiety. Probably related to gastroparesis. He has had severe gastroparesis documented on previous gastric emptying scan. He was on Bethanechol in the past but that was stopped because it caused headaches. The azithromycin cause nausea and he stopped this. The patient used some erythromycin in the past which some relief he states. I would not use Reland for fear of neurological problems. I suspect that gastroparesis is worse because of the narcotics that he takes. Whether it is related to pathology in the stomach like an ulcer is unclear. Risk of gastric cancer/malignancy is small. 2. Constipation - opiate medications induced. Linezz does help in the past. 3. Left lower quadrant pain, crampy in nature, the pain gets better with bowel movements. I suspect this is related to the constipation itself rather then diverticulitis. The examination in the left lower quadrant is quite benign. 4. Weight loss, failure to thrive. This is multifactrial. this could be explained due to early satiety or constipation. He is not eating a lot, etc. 5. Headaches - his sed rate has been elevated. He has used steroids in the past. The etiology is unclear. RECOMMENDATIONS At this time I will start Erythromycin (EES) we will see which formulation the hospital has -- oral or IV. Side effects hve been disucssed, this will help both the stomach emptying and also his colon. 2. Ideally he would like to try to limit his narcotics if possible, as this can obviously make gastrointestinal symptoms worse. 3. Since the last upper endoscopy and colonoscopy were done in March 2015, it will be bring a low yield to repeat so soon. However if this does not improve we will consider this. However at this time he feels he cannot take a preparation. 4. I discussed in detail with the patient and the patient's , further evaluation including a jejunal tube for tube feedings, ( I would not go with just gastric tube alone, I do not think that he would tolerate gastric feeding because of his gastroparesis). We also talked about upper endoscopy with Botox injection around the pylorus as well as a gastric pacemakers. However, both these modalities only help in a small percentage of the patients. At this time is not ready to consent to any type of feeding tube. 5. We did briefly talked about indications, risks, complications, benefits , alternative and limitations of an upper endoscopy and colonoscopy including risk of bleeding, perforation, infection, arrhythmias, small possibility of . They understand he will need to be off his Xarelto for this (may have risk of PE,DVT, CVA etc ). They understand the possibility of missed lesions, etc. MD RYAN Robledo/gera /11:40 AM /1:02 PM JOAQUIN
[2017-05-15] MEDS ORDERED: LORazepam 2 MG/ML VIAL IV PUSH SCH (15:00)
--- NOTE | 2017-05-15 15:05 | PD.ONC.PN ---
Subjective Subjective Remarks Feels much better Mild headache this am for which he got Dilaudid. No other complaints. Objective Data Date Time Temp Pulse Resp B/P Pulse Ox O2 Delivery O2 Flow Rate FiO2 05/15/17 12:00 96.8 44 18 153/73 98 05/15/17 08:00 96.5 44 17 148/66 98 05/15/17 06:48 19 05/15/17 04:50 98.2 50 16 122/61 97 05/15/17 01:00 46 05/15/17 00:00 97.0 64 18 171/83 93 05/14/17 19:55 53 18 96 Room Air 05/14/17 19:38 45 16 185/90 99 Room Air 05/14/17 16:46 100 Room Air 05/14/17 16:38 57 16 97 Room Air 05/14/17 16:33 99 05/14/17 16:02 98.2 65 18 151/75 98 Result Diagram: 05/15/17 0600 05/15/17 0600 Laboratory Results Laboratory Tests Test 05/14/17 05/14/17 05/15/17 16:45 17:35 06:00 White Blood Count 7.3 TH/MM3 5.1 TH/MM3 Red Blood Count 4.36 MIL/MM3 4.20 MIL/MM3 Hemoglobin 11.8 GM/DL 11.8 GM/DL Hematocrit 36.2 % 34.7 % Mean Corpuscular Volume 83.1 FL 82.6 FL Mean Corpuscular Hemoglobin 27.1 PG 28.1 PG Mean Corpuscular Hemoglobin 32.6 % 34.0 % Concent Red Cell Distribution Width 16.8 % 16.8 % Platelet Count 144 TH/MM3 119 TH/MM3 Mean Platelet Volume 9.6 FL 9.5 FL Neutrophils (%) (Auto) 51.1 % 52.6 % Lymphocytes (%) (Auto) 32.5 % 29.0 % Monocytes (%) (Auto) 9.7 % 10.9 % Eosinophils (%) (Auto) 6.3 % 7.1 % Basophils (%) (Auto) 0.4 % 0.4 % Neutrophils # (Auto) 3.7 TH/MM3 2.7 TH/MM3 Lymphocytes # (Auto) 2.4 TH/MM3 1.5 TH/MM3 Monocytes # (Auto) 0.7 TH/MM3 0.5 TH/MM3 Eosinophils # (Auto) 0.5 TH/MM3 0.4 TH/MM3 Basophils # (Auto) 0.0 TH/MM3 0.0 TH/MM3 CBC Comment DIFF FINAL DIFF FINAL Differential Comment Erythrocyte Sedimentation Rate 54 mm/hr Prothrombin Time 11.0 SEC Prothromb Time International 1.0 RATIO Ratio Activated Partial 28.7 SEC Thromboplast Time Sodium Level 138 MEQ/L 139 MEQ/L Potassium Level 3.6 MEQ/L 3.7 MEQ/L Chloride Level 104 MEQ/L 103 MEQ/L Carbon Dioxide Level 27.0 MEQ/L 27.4 MEQ/L Anion Gap 7 MEQ/L 9 MEQ/L Blood Urea Nitrogen 15 MG/DL 14 MG/DL Creatinine 1.12 MG/DL 1.06 MG/DL Estimat Glomerular Filtration 63 ML/MIN 67 ML/MIN Rate Random Glucose 141 MG/DL 154 MG/DL Calcium Level 9.3 MG/DL 8.8 MG/DL Total Bilirubin 0.4 MG/DL Aspartate Amino Transf 17 U/L (AST/SGOT) Alanine Aminotransferase 20 U/L (ALT/SGPT) Alkaline Phosphatase 68 U/L Total Creatine Kinase 21 U/L C-Reactive Protein 1.18 MG/DL Total Protein 7.1 GM/DL Albumin 3.1 GM/DL Urine Color LIGHT-YELLOW Urine Turbidity CLEAR Urine pH 8.0 Urine Specific [place] 1.006 Urine Protein NEG mg/dL Urine Glucose (UA) NEG mg/dL Urine Ketones NEG mg/dL Urine Occult Blood NEG Urine Nitrite NEG Urine Bilirubin NEG Urine Urobilinogen LESS THAN 2.0 MG/DL Urine Leukocyte Esterase NEG Urine WBC LESS THAN 1 /hpf Urine Squamous Epithelial <1 /hpf Cells Microscopic Urinalysis Comment CATH-CULT NOT IND Imaging Studies Last [address] 05/14/171617 Signed Impressions: Service Date/Time: Sunday, May 14, 2017 17:06 - CONCLUSION: 1. Benign calcification in the medial aspect of the left frontal lobe. 2. No acute abnormality seen. Stable compared to previous dated 03/07/14. Regino Garcias MD Chest X-Ray 05/14/171617 Signed Impressions: Service Date/Time: Sunday, May 14, 2017 16:22 - CONCLUSION: 1. Discoid atelectasis within the right mid and lower lung field. 2. No pulmonary edema or focal alveolar consolidation. 3. Degenerative changes and scoliosis of the thoracic spine. Manny Lawton MD Administered Medications Medications (Trade) Dose Ordered Sig/Jacques Route PRN Reason Start Time Stop Time Status Last Admin Dose Admin Sodium Chloride (NS Flush) 2 ml BID IV FLUSH 05/14/17 21:00 05/14/17 21:22 Zolpidem Tartrate (Ambien) 10 mg HS PRN PO SLEEP 05/14/17 20:00 05/15/17 00:24 Insulin Detemir (Levemir Inj) 10 units HS SQ 05/15/17 01:00 05/15/17 02:07 Hydromorphone HCl (Dilaudid Pf Inj) 1 mg Q4H PRN IV PAIN SCALE 5-10 05/15/17 08:00 05/15/17 08:00 Objective Remarks GENERAL: Older pleasant male, sitting up in bed in no distress. SKIN: Warm and dry. HEAD: Normocephalic. Small cut to L forehead. EYES: No injection or drainage. NECK: Supple, trachea midline. CARDIOVASCULAR: Regular rate and rhythm without murmurs. RESPIRATORY: Breath sounds equal bilaterally. No accessory muscle use. GASTROINTESTINAL: Abdomen soft, non-tender, nondistended. EXTREMITIES: No cyanosis, or edema. NEUROLOGICAL: No obvious focal deficit. Awake, alert, and oriented x3. 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 Plan 1. MRI brain was negative. 2. Dr Herrmann has ordered MRI of carotid arteries. Will plan to pre-medicate pt as he is claustrophobic. 3. Headache improved. 4. GI seen and examined pt, no plans for scope at this time. Plan to start EES for constipation. Attending Statement The exam, history, and the medical decision-making described in the above note were completed with the assistance of the mid-level provider. I reviewed and agree with the findings presented. I attest that I had a [id number] encounter with the patient on the same day, and personally performed and documented my assessment and findings in the medical record. he is doing better and mri of brain normal and mra of neck is normal. all good new. I spoke with Dr. Mcclelland and she will help determine what the appropriate regimen will be to use at home for the headaches as this as been an overriding problem. Will plan on discharge tomorrow with erythromycin and whatever medicines Dr. Mcclelland feels are appropriate for treatment and prevention of headaches . I am very grateful for everyone's help. Mahsa Pablo May 15, 2017 15:05 Oziel Herndon MD May 15, 2017 17:15
[2017-05-15] MEDS ORDERED: GADODIAMIDE PF 287 MG/ML 20 ML VIAL (for RAD MRI) IV ONE (16:41)
--- NOTE | 2017-05-15 16:42 | RADRPT ---
EXAM DATE/TIME: 05/15/2017 15:59 [facility] COMPARISON: MRI BRAIN W & W/O CONTRAST, May 14, 2017, 21:39. INDICATIONS : Cephalgia. MEDICAL HISTORY : Carcinoma, prostate. SURGICAL HISTORY : Colon resection. Tonsillectomy. ENCOUNTER: Initial ACUITY: 2 day PAIN SCORE: 5/10 LOCATION: cranial Please note a normal MRA of the brain does not entirely exclude the possibility of a small aneurysm, nor the possibility of distal intracranial vessel disease. TECHNIQUE: 3D time of flight MRA was performed. Source images, multiplanar STS MIP, and 3D volume MIP reconstru ctions were reviewed. FINDINGS: There is excellent visualization of the major intracranial arteries out to the second-order branch ve ssels. There is no evidence for aneurysm, vessel truncation or stenosis, and no evidence for vascula r malformation. CONCLUSION: 1. Negative examination. Regino Garcias MD on May 15, 2017 at 16:39 Board Certified Radiologist. This report was verified electronically.
--- NOTE | 2017-05-15 17:03 | RADRPT ---
EXAM DATE/TIME: 05/15/2017 15:59 [facility] COMPARISON: No previous studies available for comparison. INDICATIONS : Cephalgia. CONTRAST: 20 cc Omniscan (gadodiamide) IV MEDICAL HISTORY : Carcinoma, prostate. SURGICAL HISTORY : Colon resection. Tonsillectomy. ENCOUNTER: Initial ACUITY: 2 day PAIN SCORE: 0/10 LOCATION: neck Percent stenosis is calculated using the diameter of the stenotic region over the diameter of the nor mal distal internal carotid artery. TECHNIQUE: Bolus infused MRA of the extracranial circulation was performed using a neurovascular coil. Post pro cessing was performed including rotating subvolume maximum intensity projections of each carotid lyudmila ry, rotating full volume maximum intensity projections of both carotid arteries, sagittal and coronal sliding thin slab reformations of each carotid artery, and left oblique sliding thin slab reformatio n through the aortic arch to include the origin of the arch branch vessels. FINDINGS: AORTIC ARCH: There is a three vessel origin of the great vessels from the aorta. No evidence of ostial narrowing. RIGHT CAROTID: The common carotid artery is intact. The carotid bulb has a normal configuration without significant ulceration or narrowing. The internal carotid artery lumen is smooth without significant stenosis. The external carotid artery is intact. LEFT CAROTID: The common carotid artery is intact. The carotid bulb has a normal configuration without significant ulceration or narrowing. The internal carotid artery lumen is smooth without significant stenosis. The external carotid artery is intact. VERTEBRALS: The vertebral arteries have a symmetric diameter. No stenotic lesions are seen. CONCLUSION: 1. Normal carotid MRA examination without evidence for significant flow limiting stenosis. Dell George MD on May 15, 2017 at 16:58 Board Certified Radiologist. This report was verified electronically.
--- NOTE | 2017-05-15 17:13 | MB ---
cc: WINNIE WHATLEY MD DATE OF CONSULTATION 05/15/17 1935. REASON FOR CONSULTATION Headache. HISTORY OF PRESENT ILLNESS The patient is a very pleasant 81-year-old man with a known history of prostate cancer, melanoma, diabetes, atrial fibrillation and [place] who presents with severe headache for admission. It started sometime around January as far as his can recall. He would have a headache every now and then, but if he took a Lortab 10 mg, it would subside and it would not be every day. However, the last few days or so it has been occurring on a daily basis and if he took his Lortab they would away. Yesterday, he took the Lortab twice, actually took two at a time, and it would not go away in all. The headache is described as pulsatile over the frontal area and the top of his head without loss of vision, double vision, without jaw claudication, without weakness on one side of the body. He is able to talk. He is not confused during these spells. He says usually he gets some pain in his groin as well when the headaches occur. He does admit he has not been drinking as much water as he has been instructed in the past. Fortunately, an MRI of the brain with and without contrast did not show anything acute nor any enhancement. He denies any nuchal rigidity. He denies any fevers, chills. PAST MEDICAL HISTORY As described. 1. Prostate cancer. 2. Pulmonary nodules that showed up to be an adenocarcinoma from the prostate 3. Melanoma of the scalp 4. Diabetes, 5. Myocardial infarction. 6. Atrial fibrillation on Xarelto PAST SURGICAL HISTORY 1. Angioplasty 2. Melanomas of the scalp removal 3. Inguinal umbilical hernia repair 4. Biopsy of the prostate in [address] Walls, showed adenocarcinoma. 5. Removal of the melanoma in 2016 6. Resection of the colon for diverticulitis in 2011. 7. History of gastroparesis. 8. Cardiac stents MEDICATIONS Home are 1. Lortab 10/325. He usually takes it twice a day. 2. Flonase, 3. Colace, 4. Insulin 5. Lupron 6. ___ 7. Lisinopril, 8. Lorazepam 9. Metoprolol 10. Singulair inhalers 11. Xarelto 12. Crestor 13. Flomax, 14. Ambien. ALLERGIES CONTRAST MEDIA FAMILY HISTORY Noncontributory. PHYSICAL EXAMINATION VITAL SIGNS: Temperature is 96.8, pulse 44, respiratory rate 18, blood pressure 153/73, satting at 90% on room air. NECK: Supple. No appreciable carotid bruits. HEART: Regular. Pupils are reactive. He has a pterygium over the left eye. I believe he has had right cataract surgery. Extraocular muscles and visual dunn are full. Face is symmetrical. Tongue is midline. Motor: He does not exhibit any drift or leg lag. Cerebellar testing is normal. Toes withdraws. DTRs are trace to 1+. Sensory is normal. Gait is withheld at this time. He does not exhibit any tenderness over the temporal arteries nor any induration. LABORATORY DATA Labs are reviewed. Sed rate was 54, CRP 1.18. As you know, he has been on steroids in the past. He does not do well with steroids any longer. His coag panel is normal. Hemoglobin 11.8, platelets 119,000 IMAGING STUDIES Chest x-ray - Discoid atelectasis in the right mid and lower lung dunn. MRI brain with and without - no acute findings. IMPRESSION Refractory headache in an 81-year-old man with normal MRI. At this point, with current medication he is taking he is stable. He has not had a headache. I would recommend continuing with current dose of medications. I do not believe it is due to any medications; none of his medicines are new. I do not believe he has an infectious etiology. I would like to go ahead and get an EEG and MRA of the [place] and carotids to look for any intracranial disease, stenosis, aneurysms, so forth. If oncology thinks it may be indicated, certainly a lumbar puncture can be an option, however, somewhat risky given that he would have to be off of anticoagulation. At this point, I would recommend just continuing with the pain medicine for adequate control. Let us get the studies that I have ordered. I also put him on normal saline at 75 mL an hour to maintain hydration. MD KISHA House/ /2:26 PM /4:59 PM
[2017-05-15] MEDS: ERYTHROMYCIN ETHYLSUCCINATE 200 MG/5 ML SUSP 100 ML BOTTLE PO SCH ×2 (17:40→21:59)
--- NOTE | 2017-05-15 18:31 | MG ---
cc: WINNIE WHATLEY M.D. Lab No: [id number] Date: Age: 81 Sex: M Race: ROOM: [id number]. Awake, drowsy asleep study. Photic stimulation has some bruising over his right frontal area. MRI does not show anything acute. An 81-year-old man with severe headache, history of cancer, prostate some mets to the lung. His medicines are Dilaudid, Levemir, Ambien, Protonix. DESCRIPTION OF RECORD: The patient has an alpha rhythm of 8 Hz, 20-50 microvolts. Overall symmetrical background. EKG looks like a bradycardia. I cannot tell you for sure if it is sinus. Overall symmetrical background. Some muscle artifact. There is a question of a phase reversal at T4, T6, T602 at epoch 66 as well as T3, T5, T501, same epoch, isolated. Photic stimulation did elicit a posterior driving response. There is again a phase reversal of questionable sharp T3, T5 and T501 that is after 23 hertz. IMPRESSION: Abnormal EEG due to phase reversals and sharp waves seen. This may be certainly epileptic potentials but there is no ongoing epileptiform activity. Consideration of repeat EEG in the next 24-48 hours or as an outpatient versus possibly considering antiepileptic trial of something such as Depakote or topiramate, both migraine preventatives may also be considered. Again no ongoing epileptic activity otherwise. Clinical correlation. MD KISHA House/CHASTITY /3:51 PM /6:25 PM
[2017-05-15] MEDS: DIVALPROEX SODIUM E.R. 500 MG TAB PO SCH (20:45)
[2017-05-15] MEDS: DOCUSATE SODIUM 100 MG CAP PO SCH (20:46)
[2017-05-15] MEDS: LISINOPRIL 20 MG TAB PO SCH (20:47)
[2017-05-15] MEDS: METOPROLOL TARTRATE 25 MG TAB PO SCH (20:48)
[2017-05-15] MEDS ORDERED: MONTELUKAST SODIUM 10 MG TAB PO SCH (21:00)
[2017-05-15] MEDS ORDERED: ATORVASTATIN 80 MG TAB PO SCH (21:00)
[2017-05-15] MEDS ORDERED: TAMSULOSIN HCL 0.4 MG CAP PO SCH (21:00)
[2017-05-15] MEDS ORDERED: INSULIN DETEMIR 100 UNITS/ML VIAL SQ SCH (21:00)
[2017-05-15] MEDS ORDERED: RIVAROXABAN 20 MG TAB PO SCH (21:00)
[2017-05-16] VITALS: BP 166/70; PULSE 50; RESP 18; TEMP 96.6; O2SAT 97
[2017-05-16 04:00] VITALS: BP 120/72; PULSE 56; RESP 17; TEMP 98.1; O2SAT 98
[2017-05-16] MEDS: ERYTHROMYCIN ETHYLSUCCINATE 200 MG/5 ML SUSP 100 ML BOTTLE PO SCH ×2 (05:36→13:10)
[2017-05-16] MEDS: SODIUM CHLOR 0.9% 1000 ML INJ 1,000 ML IV SCH (05:43)
[2017-05-16] MEDS: INSULIN ASPART SUPPLEMENTAL SCALE SQ SCH ×3 (05:43→16:00)
[2017-05-16] MEDS: HYDROmorphone HCL PF 1 MG/ML VIAL IV PRN ×3 (05:48→18:38)
[2017-05-16 07:50] VITALS: BP 129/66; PULSE 50; RESP 20; TEMP 96.3; O2SAT 97
[2017-05-16] MEDS: SODIUM CHLORIDE 0.9% FLUSH 10 ML FLUSH IV FLUSH SCH (08:42)
[2017-05-16] MEDS: LISINOPRIL 20 MG TAB PO SCH (08:42)
[2017-05-16] MEDS: DIVALPROEX SODIUM E.R. 500 MG TAB PO SCH (08:42)
[2017-05-16] MEDS: METOPROLOL TARTRATE 25 MG TAB PO SCH (08:42)
[2017-05-16] MEDS: DOCUSATE SODIUM 100 MG CAP PO SCH (08:42)
[2017-05-16] MEDS ORDERED: PANTOPRAZOLE SOD 40 MG DELAYED RELEASE TAB PO SCH (09:00)
[2017-05-16] MEDS ORDERED: NALOXEGOL 25 MG PO SCH (09:45)
--- NOTE | 2017-05-16 09:55 | HHI.PR ---
Subjective Remarks headache resolved, started on Depakote no bm yet no abd. distension no n/v eating well ambulating without assist anxious to go home family at bsd Tele reviewed, SR/SB Objective Objective Results - Vital Signs Date Time Temp Pulse Resp B/P Pulse Ox O2 Delivery O2 Flow Rate FiO2 05/16/17 07:50 96.3 50 20 129/66 97 05/16/17 06:30 20 05/16/17 04:00 98.1 56 17 120/72 98 05/16/17 00:00 96.6 50 18 166/70 97 05/15/17 21:00 54 05/15/17 20:00 97.2 58 18 160/86 99 05/15/17 16:00 96.5 50 18 168/74 98 05/15/17 12:00 96.8 44 18 153/73 98 I/O 05/15/17 05/15/17 05/15/17 05/16/17 05/16/17 05/16/17 07:00 15:00 23:00 07:00 15:00 23:00 Intake Total 120 ml 720 ml 240 ml 120 ml Output Total 800 ml 450 ml Balance 120 ml 720 ml -560 ml -330 ml Intake Oral 120 ml 720 ml 240 ml 120 ml Output Urine Total 800 ml 450 ml # Voids 1 4 1 0 # Bowel Movements 0 0 Result Diagram: 05/15/17 0600 05/15/17 0600 Imaging Last Impressions Head CT 05/14/178 Signed Impressions: Service Date/Time: Sunday, May 14, 2017 17:06 - CONCLUSION: 1. Benign calcification in the medial aspect of the left frontal lobe. 2. No acute abnormality seen. Stable compared to previous dated 03/07/14. Regino Garcias MD Chest X-Ray 05/14/17 1618 Signed Impressions: Service Date/Time: Sunday, May 14, 2017 16:22 - CONCLUSION: 1. Discoid atelectasis within the right mid and lower lung field. 2. No pulmonary edema or focal alveolar consolidation. 3. Degenerative changes and scoliosis of the thoracic spine. Manny Lawton MD Brain MRI 05/14/17 0000 Signed Impressions: Service Date/Time: Sunday, May 14, 2017 21:39 - CONCLUSION: 1. No acute findings. Mild white matter ischemic changes. No recent infarct or abnormal enhancement. 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 SKIN: No rashes, ecchymoses or lesions. Cool and dry. HEAD: Scar to right scalp from previous surgery. Normocephalic. No temporal or scalp tenderness. EYES: Pupils equal round and reactive. Extraocular motions intact. No scleral icterus. No injection or drainage. ENT: Nose without bleeding, purulent drainage or septal hematoma. Throat without erythema, tonsillar hypertrophy or exudate. Uvula midline. Airway patent. NECK: Trachea midline. No JVD or lymphadenopathy. Supple, nontender, no meningeal signs. CARDIOVASCULAR: Regular rate and rhythm without murmurs, gallops, or rubs. RESPIRATORY: Clear to auscultation. Breath sounds equal bilaterally. No wheezes , rales, or rhonchi. GASTROINTESTINAL: Abdomen soft, non-tender, nondistended. No hepato-splenomegaly , or palpable masses. No guarding. MUSCULOSKELETAL: Extremities without clubbing, cyanosis, or edema. No joint tenderness, effusion, or edema noted. No calf tenderness. Negative Homans sign bilaterally. NEUROLOGICAL: Awake and alert. Cranial nerves II through XII intact. Motor and sensory grossly within normal limits. Five out of 5 muscle strength in all muscle groups. Normal speech. 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 Presented with persistent headache, weakness, abdominal pain. Worsening headache, associated with lightheadedness. No longer being controlled with oral narcotics. Has had trials of steroids, -MRI of the brain completed, no acute findings Continue with pain management appreciate neuro input, work up recommended. Started on Depakote, seems to be doing well, headache relieved -Neck, Neck MRA no acute findings -EEG abnormal, no epileptic focus, sharp waves. Not continuous. Recommend repeat EEG -will wait for neuro input Abdominal pain Constipation Gastroparesis hx -GI has been consulted for evaluation, input appreciated. Hx of gastroparesis. Started on EES, tolerating well. Eating better -Continue with Linzess, resume Movantik. No BM yet -Bowel regimen History of prostate cancer with metastasis and previous radiation Melanoma, had resection Recent PET scan findings of single metastatic lesion right ischium -Dr. Herndon is following patient Danielle vasquez, currently sinus rhythm. Patient noted bradycardic on monitor, hr stable , 50s Continuous cardiac telemetry Continue with Xarelto Continue Lopressor with hold parameters, hold for heart rate less than 50 Hypertension, stable Continue home medications Type 2 diabetes continue with Accu-Cheks before meals and at bedtime with low-dose insulin therapy Coronary artery disease Recent admission to [facility] for chest pain, had cardiac catheter with stent. Patient denies any recent chest pain, no shortness of breath. -Continue home medications Weakness, physical debility -Physical therapy for evaluation and treatment -oob to ambulate Continue with Xarelto for DVT prophylaxis poss dc today after consultants evaluate Headache appears well controlled. D/W RN D/W Dr. Dangelo D/W pt/family This patient was seen by myself and Dr. Dangelo, this note is written on his behalf Problem Qualifiers (1) Intractable headache: Qualified Code: R51 - Acute intractable headache, unspecified headache type (2) HTN (hypertension): Qualified Code: I10 - Essential hypertension (3) CAD (coronary artery disease): Qualified Code: I25.10 - Coronary artery disease involving [place] coronary artery of [place] heart without angina pectoris (4) Diabetes mellitus: Qualified Code: E11.8 - Type 2 diabetes mellitus with complication, unspecified fdc insulin use status (5) Abdominal pain: Qualified Code: R10.84 - Generalized abdominal pain (6) Constipation: Qualified Code: K59.00 - Constipation, unspecified constipation type (7) Atrial fibrillation: Qualified Code: I48.91 - Atrial fibrillation, unspecified type Ely Stevenson May 16, 2017 09:55
[2017-05-16] MEDS ORDERED: ERYT200S2 PO (10:00)
[2017-05-16] MEDS ORDERED: DEPA500T3 PO (10:00)
--- NOTE | 2017-05-16 10:00 | HHI.DCPOC ---
Discharge Care Plan Diagnosis: (1) Abdominal pain (2) Diabetes mellitus (3) Constipation (4) Atrial fibrillation (5) Intractable headache Your Health Problems Are: Anxiety Difficulty with ADL Goals to Promote Your Health * To prevent worsening of your condition and complications * To maintain your health at the optimal level Directions to Meet Your Goals Take your medications as prescribed Follow your dietary instruction Follow activity as directed Keep your appointments as scheduled Take your immunizations and boosters as scheduled If your symptoms worsen call your PCP, if no PCP go to Urgent Care Center or Emergency Room Smoking is Dangerous to Your Health. Avoid second hand smoke Call the 24-hour hour crisis hotline for domestic abuse at Ely Stevenson May 16, 2017 10:00
--- NOTE | 2017-05-16 10:01 | PD.ONC.PN ---
Subjective Subjective Remarks Afebrile overnight. Patient states he had mild headache last night, and also mild headache upon waking. Objective Data Date Time Temp Pulse Resp B/P Pulse Ox O2 Delivery O2 Flow Rate FiO2 05/16/17 07:50 96.3 50 20 129/66 97 05/16/17 06:30 20 05/16/17 04:00 98.1 56 17 120/72 98 05/16/17 00:00 96.6 50 18 166/70 97 05/15/17 21:00 54 05/15/17 20:00 97.2 58 18 160/86 99 05/15/17 16:00 96.5 50 18 168/74 98 05/15/17 12:00 96.8 44 18 153/73 98 05/16/17 05/16/17 05/16/17 07:00 15:00 23:00 Intake Total 120 ml Output Total 450 ml Balance -330 ml Result Diagram: 05/15/17 0605/15/17 06 Administered Medications Medications (Trade) Dose Ordered Sig/Jacques Route PRN Reason Start Time Stop Time Status Last Admin Dose Admin Sodium Chloride (NS Flush) 2 ml BID IV FLUSH 05/14/17 21:00 05/15/17 20:52 Zolpidem Tartrate (Ambien) 10 mg HS PRN PO SLEEP 05/14/17 20:00 05/15/17 21:59 Insulin Detemir (Levemir Inj) 10 units HS SQ 05/15/17 01:00 05/15/17 21:23 Hydromorphone HCl (Dilaudid Pf Inj) 1 mg Q4H PRN IV PAIN SCALE 5-10 05/15/17 08:00 05/16/17 05:48 Erythromycin Ethylsuccinate (Ees 200 Mg/5 ml Liq) 200 mg Q8HR PO 05/15/17 14:00 05/16/17 05:36 Docusate Sodium (Colace) 100 mg BID PO 05/15/17 21:00 05/16/17 08:42 Metoprolol Tartrate (Lopressor) 25 mg BID PO 05/15/17 21:00 05/16/17 08:42 Montelukast Sodium (Singulair) 10 mg HS PO 05/15/17 21:00 05/15/17 20:47 Pantoprazole Sodium (Protonix) 40 mg DAILY PO 05/16/17 09:00 05/16/17 08:41 Rivaroxaban (Xarelto) 20 mg HS PO 05/15/17 21:00 05/15/17 20:47 Tamsulosin HCl (Flomax) 0.4 mg HS PO 05/15/17 21:00 05/15/17 20:46 Lisinopril (Prinivil) 40 mg BID PO 05/15/17 21:00 05/16/17 08:42 Atorvastatin Calcium 80 mg 80 mg HS PO 05/15/17 21:00 05/15/17 20:46 Sodium Chloride (NS 1000 ml Inj) 1,000 ml @ 84 mls/hr [id number] IV 05/15/17 14:15 05/16/17 05:43 Divalproex Sodium (Depakote Er) 500 mg DAILY PO 05/15/17 19:15 05/16/17 08:42 Objective Remarks GENERAL: Older pleasant male, resting in bed in no distress. SKIN: Warm and dry. HEAD: Normocephalic. Small cut to L forehead. EYES: No injection or drainage. Small pterygium to L eye. NECK: Supple, trachea midline. CARDIOVASCULAR: Regular rate and rhythm without murmurs. RESPIRATORY: Breath sounds equal bilaterally. No accessory muscle use. GASTROINTESTINAL: Abdomen soft, non-tender, nondistended. EXTREMITIES: No cyanosis, or edema. NEUROLOGICAL: No obvious focal deficit. Awake, alert, and oriented x3. 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 Plan 1. Per neurology, he was started on Depakote for headache prevention. 2. All brain scans negative. 3. Chronic constipation he is using EES, Linzess and Mobantik. Attending Statement The exam, history, and the medical decision-making described in the above note were completed with the assistance of the mid-level provider. I reviewed and agree with the findings presented. I attest that I had a [id number] encounter with the patient on the same day, and personally performed and documented my assessment and findings in the medical record. Mild headache this am and nervous about going home. At this point he is ready for discharge. We have given him a prescription for Dilaudid if pain severe. He will need to go home on Depakote for prevention of headaches and erythromycin for gastroparesis. If gastroparesis can not be controlled with emycin one can can consider a J tube to bypass stomach. Case discussed with Dr. Dangelo, Dr. Sen, and findings reviewed with family and patient. follow up in place. Mahsa Pablo May 16, 2017 10:01 Oziel Herndon MD May 16, 2017 12:53
[2017-05-16 11:21] VITALS: BP 160/72; PULSE 52; RESP 20; TEMP 96.9; O2SAT 96
--- NOTE | 2017-05-16 12:11 | HHI.GIFU ---
GI Follow-up Note Consult Follow-up Subjective: Patient laying in bed comfortably. Nausea/Early satiety better with EES. +Flatus. No bleeding. Objective: PHYSICAL EXAMINATION: Vitals signs stable No fever CHEST: Chest is clear to auscultation and percussion. CARDIAC: Regular rate and rhythm with no murmur gallop or rubs. ABDOMEN: Soft, nondistended, nontender; no hepatosplenomegaly; bowel sounds are present in all four quadrants. EXTREMITIES: No clubbing, cyanosis, or edema. SKIN: no jaundice. 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 Available Data (labs, X- Rays, Procedues) : ASSESSMENT/PLAN: 1. Early Satiety-prob gastroparesis. EES helping 2. Constipation-opiate induced. Linzess does help. + Flatus. just took a laxative. no BM yet 3. LLQ-better with a BM 4. Wt loss/failure to thrive 5. BENAVIDEZ PLAN: 1. EES-Cont 2. Try to limit narcotics if possible (can make his GI sxs worse) 3. Last EGD/COLON were in 04/12. low yield to repeat so soon but will consider if he does not improve -however he does not think he can take a prep. This can be done as an outpt if needed. will need to be off his Xarelto (risks reviewed) 4. D/W pt and a J tube (a G-tube alone prob won't work) , EGD with Botox and gastric pacemakers 5. D/W Dr. Herndon also It was a pleasure seeing Manny Rubio. Thank you for this consult. Entered by: Cristobal Hurtado MD May 16, 2017 12:11
--- NOTE | 2017-05-16 13:57 | HHI.DS ---
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3 % (0.0-4.0) 7.1 % (0.0-4.0) Eosinophils # (Auto) 0.5 TH/MM3 (0-0.4) Erythrocyte Sedimentation Rate 54 mm/hr (0-20) Estimat Glomerular Filtration 63 ML/MIN (>89) 67 ML/MIN (>89) Rate Random Glucose 141 MG/DL 154 MG/DL (74-106) (74-106) Total Creatine Kinase 21 U/L (39-308) C-Reactive Protein 1.18 MG/DL (0.00-0.30) Albumin 3.1 GM/DL (3.4-5.0) Hospital Course This is a pleasant 81-year-old elderly white male with significant past medical history of prostate cancer with pulmonary metastasis treated with radiation, melanoma of the scalp with extensive surgery and excision November 2016, diabetes , myocardial infarction, A. 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 Patient was sent by Dr. Herndon for further evaluation for intractable headaches, weakness, failure to thrive, abdominal pain and weight loss. Patient endorses history of severe headaches for the last couple months, indicates that they are frontal type headaches pounding in nature, his vision feels fuzzy he feels lightheaded. Indicates that walking sometimes makes the headaches worse. He was taking [employer] 1 but lately has increased to 2 tabs without any major relief. There doesn't seem to be any triggers to the headaches, no photophobia, no phonophobia. He has also been very weak and frail, has had abdominal pain and cramps of the left lower quadrant. He was supposed to have outpatient GI evaluation but because of his debilitated state he has not been able to do so. He has been referred to Dr. Gayle. Because of severe claustrophobia, he was not able to have imaging of the brain. Patient was evaluated in the emergency room, laboratory workup was essentially unremarkable. Initial CT of the brain was negative. A brain MRI was completed that did not reveal any acute findings. During evaluation, headache was somewhat relief. He was resting comfortably. His was at the bedside providing a lot of the details of his recent medical changes. Patient was admitted for further evaluation and treatment. 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 Presented with persistent headache, weakness, abdominal pain. Worsening headache, associated with lightheadedness. No longer being controlled with oral narcotics. Has had trials of steroids, -MRI of the brain completed, no acute findings Continued with pain management appreciated neuro input, work up recommended. Started on Depakote, seems to be doing well, headache relieved -Neck, Neck MRA no acute findings -EEG abnormal, no epileptic focus, sharp waves. Not continuous. Recommend repeat EEG -headache improved, tolerated Depakote well. Abdominal pain Constipation Gastroparesis hx -GI was consulted for evaluation, input appreciated. Hx of gastroparesis. Started on EES, tolerated well. Eating better -Continued with Linzess, resume Movantik. -Bowel regimen History of prostate cancer with metastasis and previous radiation Melanoma, had resection Recent PET scan findings of single metastatic lesion right ischium -Dr. Herndon following patient Danielle vasquez, currently sinus rhythm. Patient noted bradycardic on monitor, hr stable , 50s Continuous cardiac telemetry Continued with Xarelto Continued Lopressor with hold parameters, hold for heart rate less than 50 Hypertension, stable Continued home medications Type 2 diabetes continued with Accu-Cheks before meals and at bedtime with low-dose insulin therapy Coronary artery disease Recent admission to [facility] for chest pain, had cardiac catheter with stent. Patient denies any recent chest pain, no shortness of breath. -Continue home medications Weakness, physical debility -Physical therapy for evaluation and treatment -oob to ambulate Continued with Xarelto for DVT prophylaxis Headaches improved. Eating better Cleared for dc Discharged home in stable condition F/U PCP, neuro, oncology, GI Diet-heart healthy Activity-as tolerated Pt Condition on Discharge: Stable Discharge Disposition: Discharge Home Discharge Instructions DIET: Follow Instructions for: Heart Healthy Diet Fluid Restrictions: none Activities you can perform: Weight Bearing as Rosalina Follow up Referrals: Gastroenterology with Jonnathan Gayle MD Neurology - 2 Weeks with Kristy Herrmann MD Oncology PCP Follow-up New Medications: Divalproex ER (Depakote ER) 500 Mg Sg 500 MG PO DAILY headache #30 Ref 1 TAB Erythromycin Ethylsuccinate Liq (E.E.S. Liq) 200 Mg/5 Ml Susp 200 MG PO Q8HR gastroparesis #1 BOTTLE Continued Medications: Docusate Sodium (Colace) 100 Mg Capsule 100 MG PO BID Constipation Fluticasone Nasal [place] (Flonase Nasal [place]) 50 Mcg/Act [place] 2 SPR EACH NARE BID PRN ALLERGIES #1 Ref 0 BOTTLE Hydrocodone-Acetaminophen (Hydrocodone-Acetaminophen) 10-325 mg Tab 1-2 TAB PO Q6H PRN PAIN Ref 0 TAB Insulin Aspart Inj (Novolog Inj) 1,000 Unit/10 Ml Vial 0 SQ BID Sliding Scale as directed. Blood Sugar Management #10 Ref 0 ML Insulin Detemir Inj (Levemir Inj) 1,000 unit/ 10 ML Vial 10 UNITS SQ HS Do not mix with any other Insulin. Blood Sugar Management Ref 0 VIAL Leuprolide (3 Month) Inj Kit (Lupron Depot Inj Kit) 22.5 Mg Kit 22.5 MG IM Q84D #1 Ref 0 KIT Linaclotide (Linzess) 290 Mcg Cap 290 MCG PO DAILY PRN CONSTIPATION Ref 0 CAP Lisinopril (Lisinopril) 40 Mg Tab 40 MG PO BID Blood Pressure Management #30 Ref 0 TAB Lorazepam (Lorazepam) 0.5 Mg Tab 0.5 MG PO BID PRN ANXIETY Ref 0 TAB Metoprolol Tartrate (Metoprolol Tartrate) 25 Mg Tab 25 MG PO BID #60 Ref 0 TAB Mometasone-Formoterol 120 Act Inh (Dulera 120 Act Inh) 100-5 Mcg/Act Inh 2 PUFF INH BID PRN SHORTNESS OF BREATH #1 Ref 0 INHALER Montelukast (Singulair) 10 Mg Tab 10 MG PO HS #30 Ref 0 TAB Naloxegol (Movantik) 25 Mg Tab 25 MG PO DAILY Prevent Constipation #30 Ref 0 TAB Pantoprazole (Pantoprazole) 40 Mg Tab 40 MG PO DAILY Reflux #30 Ref 0 TAB Rivaroxaban (Xarelto) 20 Mg Tab 20 MG PO HS Blood Clot Prevention Ref 0 TAB Rosuvastatin (Crestor) 40 Mg Tab 40 MG PO HS Cholesterol Management #30 Ref 0 TAB Tamsulosin (Tamsulosin) 0.4 Mg Cap 0.4 MG PO HS Manage Prostate Problems #30 Ref 0 CAP Zolpidem (Ambien) 10 Mg Tab 10 MG PO HS PRN INSOMNIA Ref 0 TAB Ely Stevenson May 16, 2017 13:57
[2017-05-16 15:50] VITALS: BP 177/87; PULSE 62; RESP 20; TEMP 96.7; O2SAT 98
[2017-05-26] MEDS ORDERED: PLEC3TAB PO (14:09)
== END 2017-05-16 19:13 | disposition home or self-care (01) | DRG 103 ==
LOC: NEPC 15:59 → NEDA 19:14 → HOCB 23:39 → OBSVTOIN 05-15 17:05
PROVIDERS: ADMIT Internal Medicine; ATTEND Internal Medicine
DX: R51 Headache (principal); I48.91 Unspecified atrial fibrillation; K31.84 Gastroparesis; E11.43 Type 2 diabetes mellitus with diabetic autonomic (poly)neuropathy; R62.7 Adult failure to thrive; I10 Essential (primary) hypertension; K21.9 Gastro-esophageal reflux disease without esophagitis; I25.10 Atherosclerotic heart disease of native coronary artery without angina pectoris; K59.09 Other constipation; E78.5 Hyperlipidemia, unspecified; Z95.5 Presence of coronary angioplasty implant and graft; Z85.118 Personal history of other malignant neoplasm of bronchus and lung; Z85.46 Personal history of malignant neoplasm of prostate; Z79.4 Long term (current) use of insulin; Z85.820 Personal history of malignant melanoma of skin; Z79.01 Long term (current) use of anticoagulants; Z91.81 History of falling; Z85.47 Personal history of malignant neoplasm of testis
CPT/HCPCS: 70450; 70544; 70548; 70553; 71010; 80048; 80053; 81001; 82550; 82948; 85025; 85610; 85652; 85730; 86140; 93005; 95819; 96374; 96375; 96376; A9579; G0378; J0131; J1170; J1815; J2060; J2270; J2405; J7030